=== PATIENT | female | born 1930 | race Caucasian/White ===

== ENCOUNTER 2017-03-07 20:50 | Inpatient (IN) ==
[2017-03-08] MEDS ORDERED: Naloxone 0.4 MG/ML INJ IVP PRN (03:06)
[2017-03-08] MEDS ORDERED: *HR* HYDROcodone/Acet 5/325 mg TABLET PO PRN (03:06)
[2017-03-08] MEDS ORDERED: *HR* Morphine 2 MG/ML SYRINGE IVP PRN (03:06)
--- NOTE | 2017-03-08 03:36 | Internal Med History&Physical ---
Date of Encounter: 03/08/17 Time of Encounter: 03:24 Assessment and Plan (1) Rectovaginal fistula Current visit: Yes Status: Acute She definitely high risk for severe sepsis with Recto vaginal fistula and need an immediate repair of fistula, need further work up too so will make her full admission.. Our Surgeon Dr. Mckeon already aware of this pt and recommend to admit under hospitalist service will talk to him in the morning cont symptomatic and supportive care NPO now IV fluids IV analgesics Will get an EKG for pre op work up Reviewed her CT of Reviewed labs WBC: 11.0, Hb 13.5, Na: 139, K + 3.3 UA- benign (2) Lower abdominal pain Current visit: Yes Status: Acute (3) DM2 (diabetes mellitus, type 2) Current visit: Yes Status: Acute Will check HbA1C Qualifiers: Qualified Code(s): E11.9 - Type 2 diabetes mellitus without complications (4) Melena Current visit: Yes Status: Acute Pt did mention about dark colored stools which might be due to Fe pills will check Hemoccult also will do close monitoring of Hb so far her Hb stable @ 13.5 Internal Medicine - H&P: HPI Chief complaint: Vaginal discharge Admitted From: Hospital to Hospital Transfer ([facility]) History of present illness: Ms. Michele is a 86 year old female with known PMH of ?? 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 ED last night c/o dark colored vaginal discharge and lower abdominal pain. She did noticed possible fecal material in her vaginal discharge. Pt was transferred to our hospital for further care. Pt denied any CP / SOB. She still has mild LLQ abdominal pain. As per pt she noticed some dark colored secretions through vagina, seems like fecal material, associated with LLQ abdominal soreness/ pain. Does have some nausea but denied any vomitings. 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 Past Med Surg Social Fam HX - Past Medical History Medical history: cancer, cardiomyopathy, kidney stones Psychiatric history: no psych history - Social History Smoking Status: Never smoker Smokeless Tobacco Status: No Alcohol use: none Drug use: none - Family History Mother History Unknown: Yes Father History Unknown: Yes All Systems PM: A 10-system review of systems was performed and is negative for pertinent findings except as documented above in the HPI. Review of systems: All the systems are reviewed everything is benign except the systems and symptoms I mentioned in the history of present illness - Constitutional General appearance: Present: A&O X 3, no acute distress, answers questions appropriately - Head Head exam: Present: atraumatic, normal inspection - Neck Neck exam general surgery: Present: supple - Respiratory Respiratory exam: Present: CTAB. Absent: accessory muscle use, rales, rhonchi, wheezes - Cardiovascular Cardiovascular exam: Present: RRR, +S1, +S2. Absent: diastolic murmur, gallop, rubs, systolic murmur - GI/Abdominal GI/Abdominal exam: Present: normal bowel sounds, soft, tenderness (mild tenderness in LLQ), no peritoneal signs. Absent: distended - Extremities Exam Extremities exam: Absent: calf tenderness, pedal edema, tenderness - Back Exam Back exam: Absent: CVA tenderness (L), CVA tenderness (R) - Neurological Exam Neurological exam: Present: alert, oriented X3 - Psychiatric Psychiatric exam: Present: normal affect, normal mood - Skin Skin exam: Absent: rash
[2017-03-08] MEDS: 0.9 % Sodium Chloride 1,000 ML IVC SCH ×2 (03:55→21:28)
[2017-03-08 05:22] LABS: Basophils # 0.1 K/mcL (0.0-0.2); Basophils % 0.8 %; Eosinophils # 0.1 K/mcL (0.0-0.6); Eosinophils % 1.6 %; Hematocrit 37.7 % (35.3-44.9); Hemoglobin 12.1 g/dL (11.5-15.4); Immature Granulocytes % 0.4 % (0-4); Lymphocytes # 2.1 K/mcL (0.6-4.6); Lymphocytes % 27.4 %; Mean Corpuscular HGB Conc 32.1 g/dL (31.6-35.5); Mean Corpuscular Hemoglobin 28.3 pg (28.0-33.3); Mean Corpuscular Volume 88.1 fL (83.0-100.0); Mean Platelet Volume 10.4 fL (9.4-12.4); Monocytes # 1.2 K/mcL (0.0-1.3); Monocytes % 14.9 %; Neutrophils # 4.2 K/mcL (1.6-8.9); Platelet Count 290 K/mcL (140-400); Red Blood Count 4.28 M/mcL (3.82-4.97); Red Cell Distribution Width 14.2 % (11.5-14.5); Segmented Neutrophils % 54.9 %
[2017-03-08] MEDS: *HR* Enoxaparin 40 MG/0.4 ML SYRINGE SQ SCH (05:36)
[2017-03-08 06:58] LABS: Alanine Aminotransferase 7 Units/L (0-55); Albumin 2.9 g/dL (3.5-5.0); Albumin/Globulin Ratio 0.8 (1.1-2.2); Alkaline Phosphatase 72 Units/L (38-126); Aspartate Amino Transferase 10 Units/L (5-34); BUN/Creatinine Ratio 23 (6-26); Bilirubin,Total 0.5 mg/dL (0.2-1.2); Blood Urea Nitrogen 17 mg/dL (7-20); Calcium 9.8 mg/dL (8.6-10.8); Carbon Dioxide 26 mEq/L (19-29); Chloride 106 mEq/L (98-109); Globulin 3.6 g/dL (2.4-3.5); Glucose 83 mg/dL (70-99); Osmolality,Calculated 293 (280-300); Potassium 3.1 mEq/L (3.5-4.5); Sodium 141 mEq/L (136-145); Total Protein 6.5 g/dL (6.0-8.3); eGFR For African Americans > 60 (> 60); eGFR For Non-African Americans > 60 (> 60)
[2017-03-08] MEDS ORDERED: Potassium Chloride 20 MEQ, Lidocaine 1% 2 ML in D5% in Water 250 ML IVPB ONE (09:29)
--- NOTE | 2017-03-08 10:23 | General Surgery Consult Note ---
Date of Encounter: 03/08/17 Time of Encounter: 10:40 Assessment and Plan (1) Rectovaginal fistula Current Visit: Yes Status: Acute Evidence of dark stool in vaginal discharge Patient is at high risk for sepsis Currently asymptomatic Plan Nothing by mouth for possible surgery tomorrow at midnight Barium enema with for evaluation and visualization of possible fistula. (2) Lower abdominal pain Current Visit: Yes Status: Acute No current complaints of abdominal pain at this time. Possibly related to fistula versus chronic constipation (3) Melena Current Visit: Yes Status: Acute Most likely etiology of iron supplementation No reported abdominal pain, symptomatic aside from discharge Continue to monitor this time History of Present Illness Consult date: 03/08/17 Reason for consult: other Requesting physician: Derrick Villanueva History of present illness: Mr. Michele is an 86-year-old female who presents to the emergency department with a complaint of heart stools and lower abdominal pain. She states that she takes iron supplementation as well as fiber supplementation 3 times per day and started to notice some dark, thick discharge coming from her vagina. She called her primary care physician told her to present to the emergency department. She denied any symptoms of dysuria, fevers, chills, diarrhea, constipation, blood in stool, nausea, vomiting. She has had multiple abdominal surgeries in the past including 3 involving her sigmoid colon for sigmoid prolapse as well as reported peritonitis. During time of interview, patient states that she is asymptomatic but she did notice some dark spots in her urine. She does admit to occasional urinary incontinence but states this is a chronic problem for her. She was admitted to medicine service for suspected recto- vaginal fistula with a high risk for sepsis. No signs of been stable. Labs unremarkable except for mild hypokalemia at 3.1. Past Med Surg Social Fam HX - Past Medical History Medical history: cancer, cardiomyopathy, kidney stones Psychiatric history: no psych history - Social History Smoking Status: Never smoker Smokeless Tobacco Status: No Alcohol use: none Drug use: none - Family History Mother History Unknown: Yes Father History Unknown: Yes Medications and Allergies hydroCHLOROthiazide [Hydrochlorothiazide] 12.5 mg PO DAILY 03/08/17 [History] 3 Allergy/AdvReac Type Severity Reaction Status Date / Time Sulfa (Sulfonamide Allergy Unknown Unknown Verified 03/08/17 07:02 Antibiotics) Review of Systems All systems PM: A 10-system review of systems was performed and is negative for pertinent findings except as documented above in the HPI. - Constitutional weight loss (3 Pounds), no chills, no fever(s), no headache(s) - Cardiovascular no chest pain, no dyspnea, no dyspnea on exertion, no edema - Respiratory no cough, no dyspnea, no hemoptysis, no wheezing - Gastrointestinal abdominal pain, no change in bowel habits, no constipation, no diarrhea, no loose stools, no melena, no nausea, no vomiting - Genitourinary Genitourinary: vaginal discharge (black) General Surgery Exam Initial Vital Signs Temp Pulse Resp BP Pulse Ox 98.0 F 75 16 145/56 99 03/08/17 03:25 03/08/17 03:25 03/08/17 03:25 03/08/17 03:25 03/08/17 03:25 - General physical appearance well developed, well nourished, no distress, no pain - Respiratory normal expansion, normal respiratory effort, clear to auscultation - Cardiovascular Cardiovascular exam: Present: RRR, no murmurs/rubs/gallops - Abdomen Abdomen general surgery: Present: bowel sounds present, soft, tender Abdominal Tenderness: Present: diffusely (mild) Exam Initial Vital Signs Temp Pulse Resp BP Pulse Ox 98.0 F 75 16 145/56 99 03/08/17 03:25 03/08/17 03:25 03/08/17 03:25 03/08/17 03:25 03/08/17 03:25 Results - Labs 03/08/17 05:00 03/08/17 05:00 Abnormal lab results Potassium 3.1 mEq/L (3.5-4.5) L 03/08/17 05:00 POC Glucose 92 (58-89) H 03/08/17 05:39 Albumin 2.9 g/dL (3.5-5.0) L 03/08/17 05:00 Globulin 3.6 g/dL (2.4-3.5) H 03/08/17 05:00 Albumin/Globulin Ratio 0.8 (1.1-2.2) L 03/08/17 05:00 Diabetes panel 03/08/17 03/08/17 Range/Units 05:00 05:00 Sodium 141 (136-145) mEq/L Potassium 3.1 L (3.5-4.5) mEq/L Chloride 106 (98-109) mEq/L Carbon Dioxide 26 (19-29) mEq/L BUN 17 (7-20) mg/dL Creatinine 0.73 (0.57-1.11) mg/dL Glucose 83 (70-99) mg/dL Hemoglobin A1c 5.0 ( - 5.6) % Calcium 9.8 (8.6-10.8) mg/dL AST 10 (5-34) Units/L ALT 7 (0-55) Units/L Alkaline Phosphatase 72 (38-126) Units/L Albumin 2.9 L (3.5-5.0) g/dL Calcium panel 03/08/17 Range/Units 05:00 Calcium 9.8 (8.6-10.8) mg/dL Albumin 2.9 L (3.5-5.0) g/dL Pituitary panel 03/08/17 Range/Units 05:00 Sodium 141 (136-145) mEq/L Potassium 3.1 L (3.5-4.5) mEq/L Chloride 106 (98-109) mEq/L Carbon Dioxide 26 (19-29) mEq/L BUN 17 (7-20) mg/dL Creatinine 0.73 (0.57-1.11) mg/dL Glucose 83 (70-99) mg/dL Calcium 9.8 (8.6-10.8) mg/dL Adrenal panel 03/08/17 Range/Units 05:00 Sodium 141 (136-145) mEq/L Potassium 3.1 L (3.5-4.5) mEq/L Chloride 106 (98-109) mEq/L Carbon Dioxide 26 (19-29) mEq/L BUN 17 (7-20) mg/dL Creatinine 0.73 (0.57-1.11) mg/dL Glucose 83 (70-99) mg/dL Calcium 9.8 (8.6-10.8) mg/dL Total Bilirubin 0.5 (0.2-1.2) mg/dL AST 10 (5-34) Units/L ALT 7 (0-55) Units/L Alkaline Phosphatase 72 (38-126) Units/L Albumin 2.9 L (3.5-5.0) g/dL All other labs normal. Consult Discharge Plan - Plan Referrals: Miky Garcia, [Primary Care Provider] -
--- NOTE | 2017-03-08 15:37 | Event Note ---
Date of Encounter: 03/08/17 Time of Encounter: 15:35 Patient is an 86y/o female admitted for rectovaginal fistula and lower abd pain. Pt seen and examined at bedside. denies any discomfort at this time. surgery on board and possible surgical intervention in am labs and vitals reviewed K supplemented NPO after midnight Hydralazine 10mg IV q6h prn SBP>160 continue IV fluids, IV analgesics
[2017-03-09 04:16] LABS: Basophils # 0.1 K/mcL (0.0-0.2); Basophils % 0.8 %; Eosinophils # 0.1 K/mcL (0.0-0.6); Eosinophils % 1.1 %; Hematocrit 38.3 % (35.3-44.9); Hemoglobin 12.3 g/dL (11.5-15.4); Immature Granulocytes % 0.5 % (0-4); Lymphocytes # 2.2 K/mcL (0.6-4.6); Lymphocytes % 23.9 %; Mean Corpuscular HGB Conc 32.1 g/dL (31.6-35.5); Mean Corpuscular Hemoglobin 28.3 pg (28.0-33.3); Mean Platelet Volume 10.2 fL (9.4-12.4); Monocytes # 1.2 K/mcL (0.0-1.3); Monocytes % 12.7 %; Neutrophils # 5.6 K/mcL (1.6-8.9); Platelet Count 305 K/mcL (140-400); Red Blood Count 4.35 M/mcL (3.82-4.97)
[2017-03-09 04:19] LABS: BUN/Creatinine Ratio 16 (6-26); Blood Urea Nitrogen 11 mg/dL (7-20); Calcium 9.4 mg/dL (8.6-10.8); Carbon Dioxide 21 mEq/L (19-29); Chloride 108 mEq/L (98-109); Glucose 89 mg/dL (70-99); Magnesium 1.8 mg/dL (1.6-2.6); Osmolality,Calculated 289 (280-300); Potassium 3.5 mEq/L (3.5-4.5); Sodium 140 mEq/L (136-145); eGFR For African Americans > 60 (> 60); eGFR For Non-African Americans > 60 (> 60)
[2017-03-09] MEDS: *HR* Enoxaparin 40 MG/0.4 ML SYRINGE SQ SCH (05:26)
[2017-03-09] MEDS ORDERED: 0.9 % Sodium Chloride 1,000 ML ONE (08:07)
[2017-03-09] MEDS: hydroCHLOROthiazide 25 MG TABLET PO SCH (09:55)
[2017-03-09] MEDS: Acetaminophen 325 MG TABLET PO PRN (09:58)
--- NOTE | 2017-03-09 13:05 | General Surgery Progress Note ---
Date of Encounter: 03/09/17 Time of Encounter: 12:00 - Assessment and Plan (1) Rectovaginal fistula Current Visit: Yes Status: Acute Barium enema today at 1300. Further recommendations pending Update: 1438-No rectovaginal fistula identified while distending the patient's rectum with Gastrografin contrast. Diverticulosis was identified within the descending and sigmoid colon. Pt is A&O x3, yet when discussing events leading up to admission and past history she is confused. There is no documented history of dementia available for me to review; however, patient is new to [facility]. This is mentioned in light of a negative Barium enema consideration could be given to incontinence. There have been no pelvic exams performed here or at [place] (according to records). Recommend further ORAL SURGERY TECHNICIAN considerations such as pelvic/bimanual exam. Reviewed with patient, her daughter, and Dr. Jacob. No surgical intervention indicated at this time. We will continue to follow along with you. Subjective Patient reports: no new complaints, voiding w/o difficulty, flatus, no bowel movement, afebrile Objective Vital Signs - Last 8 Hours Temp Pulse Resp BP Pulse Ox 03/09/17 10:55 97.9 F 76 17 143/88 99 03/09/17 08:16 97 03/09/17 07:24 97.5 F L 88 16 155/92 97 Intake and Output 03/08/17 03/09/17 03/09/17 23:59 07:59 15:59 Intake Total 1000 / 1000 Output Total 200 / 200 300 / 300 100 / 100 Balance 800 / 800 -300 / -300 -100 / -100 Intake: IV Fluids 1000 / 1000 0.9 % Sodium Chloride 1,000 ML 1000 / 1000 @ 75 mls/hr IVC .[id number] Rx #:[id number] Output: Urine 200 / 200 300 / 300 100 / 100 Other: Meal NPO # Voids 1 # Bowel Movements 1 Blood Glucose* 83 75 - General physical appearance no distress - Eyes normal ocular movement - ENT atraumatic, normocephalic - Neck Neck exam: trachea midline, no venous distension - Respiratory normal expansion, normal respiratory effort, clear to auscultation - Cardiovascular Cardiovascular exam: Present: RRR - Abdomen Abdomen: Present: bowel sounds present, soft, non tender - Integumentary no abnormal pigmentation - Neurologic normal sensation - Musculoskeletal normal gait, normal posture - Psychiatric oriented to time, oriented to person, oriented to place, speech is normal, memory intact - Labs 03/09/17 03:43 03/09/17 03:43 Diabetes panel 03/09/17 Range/Units 03:43 Sodium 140 (136-145) mEq/L Potassium 3.5 (3.5-4.5) mEq/L Chloride 108 (98-109) mEq/L Carbon Dioxide 21 (19-29) mEq/L BUN 11 (7-20) mg/dL Creatinine 0.70 (0.57-1.11) mg/dL Glucose 89 (70-99) mg/dL Calcium 9.4 (8.6-10.8) mg/dL Calcium panel 03/09/17 Range/Units 03:43 Calcium 9.4 (8.6-10.8) mg/dL Phosphorus 2.0 L (2.3-4.7) mg/dL Pituitary panel 03/09/17 Range/Units 03:43 Sodium 140 (136-145) mEq/L Potassium 3.5 (3.5-4.5) mEq/L Chloride 108 (98-109) mEq/L Carbon Dioxide 21 (19-29) mEq/L BUN 11 (7-20) mg/dL Creatinine 0.70 (0.57-1.11) mg/dL Glucose 89 (70-99) mg/dL Calcium 9.4 (8.6-10.8) mg/dL Adrenal panel 03/09/17 Range/Units 03:43 Sodium 140 (136-145) mEq/L Potassium 3.5 (3.5-4.5) mEq/L Chloride 108 (98-109) mEq/L Carbon Dioxide 21 (19-29) mEq/L BUN 11 (7-20) mg/dL Creatinine 0.70 (0.57-1.11) mg/dL Glucose 89 (70-99) mg/dL Calcium 9.4 (8.6-10.8) mg/dL Consult Discharge Plan - Plan Referrals: Miky Garcia DO [Primary Care Provider] -
--- NOTE | 2017-03-09 16:15 | Internal Med Progress Note ---
Date of Encounter: 03/09/17 Time of Encounter: 15:40 - Assessment and plan (1) Rectovaginal fistula Current Visit: Yes Status: Acute Assessment and plan: Initial imaging finding at an outside facility reported rectovaginal fistula Barium enema study reports no fistula no surgical intervention recommended at this time continues to complain of dark colored vaginal discharge and lower abd pain and possible fecal material in vaginal discharge trim mounter evaluation requested for further evaluation (2) Electrolyte abnormality Current Visit: Yes Status: Acute Assessment and plan: Hypophosphatemia Phos supplemented continue to monitor electrolytes and replace as needed (3) DVT prophylaxis Current Visit: Yes Status: Acute Assessment and plan: Lovenox sq (4) Melena Current Visit: Yes Status: Acute Assessment and plan: H&H stable dark stools likely secondary to iron supplementation will obtain stool occult - Subjective Interval history: Patient seen and examined with daughter present at bedside. Denies any discomfort. s/p Barium enema which reported no rectovaginal fistula while distending the patient's rectum with Gastrografin contrast No bowel movement reported. No further surgical intervention recommended at this time. trim mounter consultation requested for further evaluation Of note: pt reports of having memory loss in the last few years but does not have any official diagnosis of dementia. - Constitutional Vitals: Temp Pulse Resp BP Pulse Ox 97.6 F 78 17 150/99 100 03/09/17 15:24 03/09/17 15:24 03/09/17 15:24 03/09/17 15:24 03/09/17 15:24 General appearance: Present: A&O X 3, no acute distress, answers questions appropriately - Head Head exam: Present: atraumatic, normocephalic - Eye Eye exam: Present: conjuntiva pink, sclera anicteric - Respiratory Respiratory exam: Present: CTAB. Absent: respiratory distress, wheezes - Cardiovascular Cardiovascular exam: Present: RRR, +S1, +S2. Absent: diastolic murmur, gallop, rubs, systolic murmur - GI/Abdominal GI/Abdominal exam: Present: normal bowel sounds, soft, no peritoneal signs. Absent: distended, tenderness - Extremities Exam Extremities exam: Present: warm, radial pulses palpable and symmetrical. Absent : calf tenderness, pedal edema - Neurological Exam Neurological exam: Present: alert, oriented X3 Internal Medicine: Result - Labs CBC & Chem 7: 03/09/17 03:43 03/09/17 03:43 Labs: Short CBC 03/09/17 Range/Units 03:43 WBC 9.2 (4.3-11.1) K/mcL Hgb 12.3 (11.5-15.4) g/dL Hct 38.3 (35.3-44.9) % Plt Count 305 (140-400) K/mcL Neutrophils # 5.6 (1.6-8.9) K/mcL BMP 03/09/17 03:43 Sodium 140 Potassium 3.5 Chloride 108 Carbon Dioxide 21 BUN 11 Creatinine 0.70 Glucose 89 Calcium 9.4 - Impressions Impressions Barium Enema 03/09/17 08:00 IMPRESSION: No rectovaginal fistula identified while distending the patient's rectum with Gastrografin contrast. Diverticulosis was identified within the descending and sigmoid colon. D/ / Dannie Herrera MD / Dannie Herrera MD Interpreting Provider: Dannie Herrera MD Consult Discharge Plan - Plan Referrals: Miky Garcia DO [Primary Care Provider] -
--- NOTE | 2017-03-09 19:10 | OB/GYN Consult Note ---
Date of Encounter: 03/09/17 Time of Encounter: 18:50 Assessment and Plan (1) Vaginitis Current Visit: Yes Status: Acute Anaerobic and aerobic cultures obtained of the vaginal discharge would recommend getting radiology to review the [facility] from [facility] and possibly order another one to assess the hard mass at the vaginal cuff. If cultures test positive for Escherichia coli it would be highly suggestive of rectovaginal fistula. Negative can treat appropriately if anything grows out. Patient might need a course of Flagyl. Qualifiers: Chronicity: acute Qualified Code(s): N76.0 - Acute vaginitis History of Present Illness Consult date: 03/09/17 Requesting physician: Nelda Jacob Reason for consult: other (vaginal discharge) History of present illness: Patient is a 86-year-old white female who asked to see for evaluation for vaginal discharge. Patient states for the past few days she is not having any discharge with an odor and slight discoloration which she initially could not identify was confirmed but she finally felt it was coming out of the vagina. Patient states she called her primary care physician who recommended she go to the emergency room. Patient was seen at [facility] where CAT scan was performed and she was given a diagnosis of a possible rectovaginal fistula even though no pelvic exam was performed. It appears that called the general surgeon on staff recommend patient be transferred over and admitted. Patient did have a study today to see there was a fistula the study came back negative. Patient continues that this discharge we were asked to come and evaluate for this. Patient has a history of a hysterectomy in the past with multiple abdominal surgeries and a history of diverticulitis. She has been having a lot of pain in the suprapubic region. Patient was questioned whether or not she really was having this due to some potential memory loss that she is currently experiencing. I could not find the results of the CAT scan there on the disc and has not been downloaded yet. Patient states she had a hysterectomy back in the 70s for vaginal bleeding. Past Med Surg Social Fam HX - Past Medical History Source: patient, old records reviewed Medical history: cancer, cardiomyopathy, diabetes, kidney stones Psychiatric history: no psych history - Past Surgical History Surgical History: SACHA/BSO, other (Hemorrhoidectomy) - Social History Smoking Status: Never smoker Smokeless Tobacco Status: No Alcohol use: none Drug use: none - Family History Mother History Unknown: Yes Father History Unknown: Yes Medications and Allergies hydroCHLOROthiazide [Hydrochlorothiazide] 12.5 mg PO DAILY 03/08/17 [History] 3 Allergy/AdvReac Type Severity Reaction Status Date / Time Sulfa (Sulfonamide Allergy Unknown Unknown Verified 03/08/17 07:02 Antibiotics) Review of Systems All Systems: reviewed and no additional remarkable complaints except as stated Genitourinary Female: vaginal discharge, vaginal odor Exam - Vital Signs Vital signs: Initial Vital Signs Temp Pulse Resp BP Pulse Ox 98.0 F 75 16 145/56 99 03/08/17 03:25 03/08/17 03:25 03/08/17 03:25 03/08/17 03:25 03/08/17 03:25 - Constitutional Constitutional: no acute distress, thin - HEENT HEENT: Mucus Membranes Moist - Neck Neck exam: full ROM - Lungs Respiratory exam: CTAB - Cardiovascular Cardiovascular exam: RRR - Abdomen Abdomen: Present: bowel sounds normal - Vagina Vagina: Present: normal moisture (Speculum exam performed on the patient revealed atrophic mucosa but she was noted to have a yellow-green odorous discharge near The vaginal cuff with dark black flecks. She was cultured for aerobic and anaerobic cultures. Bimanual examination revealed a very hard vaginal cuff very tender to palpation I could not feel and see the corners of the cuff where the discharge is coming from.) Results Result Diagrams: 03/09/17 03:43 03/09/17 03:43 Abnormal lab results Phosphorus 2.0 mg/dL (2.3-4.7) L 03/09/17 03:43 Albumin 2.9 g/dL (3.5-5.0) L 03/08/17 05:00 Globulin 3.6 g/dL (2.4-3.5) H 03/08/17 05:00 Albumin/Globulin Ratio 0.8 (1.1-2.2) L 03/08/17 05:00 All other labs normal. Consult Discharge Plan - Plan Referrals: Miky Garcia DO [Primary Care Provider] -
--- NOTE | 2017-03-09 19:38 | Event Note ---
Date of Encounter: 03/09/17 Time of Encounter: 19:37 Dr Natarajan called. Vagina exam abnormal - felt hard. Rec either 1) review prior CT with radiology to determine etiology or 1) CT A/P with contrast. Will need further investigation prior to discharge.
[2017-03-10] MEDS: *HR* Enoxaparin 40 MG/0.4 ML SYRINGE SQ SCH (06:15)
[2017-03-10 07:22] LABS: BUN/Creatinine Ratio 14 (6-26); Blood Urea Nitrogen 10 mg/dL (7-20); Calcium 9.2 mg/dL (8.6-10.8); Carbon Dioxide 19 mEq/L (19-29); Chloride 107 mEq/L (98-109); Glucose 80 mg/dL (70-99); Magnesium 1.7 mg/dL (1.6-2.6); Osmolality,Calculated 286 (280-300); Phosphorous 2.2 mg/dL (2.3-4.7); Potassium 3.6 mEq/L (3.5-4.5); Sodium 139 mEq/L (136-145); eGFR For African Americans > 60 (> 60); eGFR For Non-African Americans > 60 (> 60)
[2017-03-10] MEDS ORDERED: 0.9 % Sodium Chloride 1,000 ML IVC SCH (08:15)
[2017-03-10 08:27] LABS: Basophils # 0.1 K/mcL (0.0-0.2); Basophils % 0.7 %; Eosinophils # 0.1 K/mcL (0.0-0.6); Eosinophils % 1.5 %; Hematocrit 38.5 % (35.3-44.9); Hemoglobin 12.4 g/dL (11.5-15.4); Immature Granulocytes % 0.6 % (0-4); Lymphocytes % 29.3 %; Mean Corpuscular HGB Conc 32.2 g/dL (31.6-35.5); Mean Corpuscular Hemoglobin 28.2 pg (28.0-33.3); Mean Corpuscular Volume 87.5 fL (83.0-100.0); Mean Platelet Volume 10.4 fL (9.4-12.4); Monocytes # 0.9 K/mcL (0.0-1.3); Monocytes % 12.8 %; Neutrophils # 3.8 K/mcL (1.6-8.9); Platelet Count 295 K/mcL (140-400); Red Cell Distribution Width 13.9 % (11.5-14.5); Segmented Neutrophils % 55.1 %
[2017-03-10] MEDS: hydroCHLOROthiazide 25 MG TABLET PO SCH (10:15)
--- NOTE | 2017-03-10 11:19 | General Surgery Progress Note ---
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 and reviewed these documents with the patient. Located CD from [place] and has sent this to radiology to be uploaded into PAX per Sonya (community health program representative). -Noted FINANCE PROFESSOR consult: pelvic exam revealing a hard mass in the vaginal cuff. Anaerobic anaerobic cultures were obtained of the vaginal discharge and FINANCE PROFESSOR recommends reviewing the CT from [facility]. Per FINANCE PROFESSOR cultures were positive for E. coli would be highly suggestive of the rectovaginal fistula versus incontinence (see description below). Notified ALEJANDRA Thompson with FINANCE PROFESSOR that CD and records had been located and available for review. Donna stated she would notify Dr. Perry of this when he exited surgery. -reports EGD and colonoscopy although she cannot recall dates or results. As previously noted in yesterday's exam, Pt was A&O x3, yet when discussing events leading up to admission and past history she is confused. Again of note there is no documented history of dementia and patient admits to recent memory loss making evaluation difficult at this time. Plan: Surgery will continue to follow along with you. Further recommendations pending review of outside CT Obtain old records from [facility]: --Barium enema 03/09/2017 negative: (No rectovaginal fistula identified while distending the patient's rectum with Gastrografin contrast. Diverticulosis was identified within the descending and sigmoid colon). Repeat CT AB/Pelvis with po and iv contrast 03/10/2017: IMPRESSION: 1. There is a 7 cm soft tissue tract extending from the proximal sigmoid colon inferiorly communicating with the left adnexa and the left vaginal cuff highly suspicious for a colovaginal fistula given clinical symptoms. There is an adjacent 1 cm pocket of gas which could represent a second sinus tract and/or abscess related to micro perforation. 2. Colonic diverticulosis predominate within the sigmoid colon with associated wall thickening. The inflammatory changes are more centered around the above sinus tract and less likely around colon. Underlying neoplasm cannot be excluded and consider further evaluation with colonoscopy. 3. Punctate nonobstructing left renal calculus. Subjective Narrative: Located documents from [facility] and reviewed these documents with the patient. Located CD from [place] [facility] and has sent this to radiology to be uploaded into PAX Per record review noted she has a notable history of 3 pregnancies, one miscarriage, uterine fibroids, salpingectomy followed by a hysterectomy, patient states her ovaries remain. Hemorrhoidectomy, gastritis, peritonitis, kidney stones, benign breast tumor in 1974, Bunyan acted me in 1977, basal cell carcinoma in 1979 a vaginal tag removed in 1980. In the GT scope in approximately 1980. G.I. bleeding in 1990. Heart With viral cardiomyopathy in 1990. Angioplasty in 1993, cataract surgery, abdominal peritonitis, another basal cell carcinoma in 2004, Paget's disease 2004, rectal lining prolapse surgery in 2007, foot surgery in 2010 and . Largely, the patient is unable to elaborate on any of these findings stating that she is having memory problems at this time. She denies abdominal pain at this time, she denies nausea, vomiting, or urinary signs or symptoms. She denies fever. She reports that she has had bowel movements that she has been hospitalized. She reports continued feeling of something in her vagina and or rectum. Objective Vital Signs - Last 8 Hours Temp Pulse Resp BP Pulse Ox 03/10/17 10:52 97.4 F L 88 17 156/81 99 03/10/17 07:15 97.7 F 67 17 167/85 96 03/10/17 03:50 98.2 F 79 16 132/77 96 Intake and Output 03/09/17 03/10/17 03/10/17 23:59 07:59 15:59 Intake Total 0 / 0 0 / 0 Output Total 450 / 450 200 / 200 100 / 100 Balance -450 / -450 -200 / -200 -100 / -100 Intake: Oral 0 / 0 0 / 0 Output: Urine 450 / 450 200 / 200 100 / 100 Other: Stool Size Small Small Stool Consistency liquid Stool Color Black # Bowel Movements 1 - General physical appearance no distress, no pain - Eyes normal ocular movement - ENT atraumatic, normocephalic - Neck Neck exam: trachea midline, no venous distension - Respiratory normal expansion, normal respiratory effort, clear to auscultation - Cardiovascular Cardiovascular exam: Present: RRR - Abdomen Abdomen: Present: bowel sounds present, soft, non tender Hernia: none - Integumentary no abnormal pigmentation - Neurologic normal coordination, normal sensation - Musculoskeletal normal posture - Psychiatric oriented to time, oriented to person, oriented to place, speech is normal, memory intact, other (Oriented but is unable to relate past medical history and appears confused.) - Labs 03/10/17 07:48 03/10/17 06:38 Diabetes panel 03/10/17 Range/Units 06:38 Sodium 139 (136-145) mEq/L Potassium 3.6 (3.5-4.5) mEq/L Chloride 107 (98-109) mEq/L Carbon Dioxide 19 (19-29) mEq/L BUN 10 (7-20) mg/dL Creatinine 0.71 (0.57-1.11) mg/dL Glucose 80 (70-99) mg/dL Calcium 9.2 (8.6-10.8) mg/dL Calcium panel 03/10/17 Range/Units 06:38 Calcium 9.2 (8.6-10.8) mg/dL Phosphorus 2.2 L (2.3-4.7) mg/dL Pituitary panel 03/10/17 Range/Units 06:38 Sodium 139 (136-145) mEq/L Potassium 3.6 (3.5-4.5) mEq/L Chloride 107 (98-109) mEq/L Carbon Dioxide 19 (19-29) mEq/L BUN 10 (7-20) mg/dL Creatinine 0.71 (0.57-1.11) mg/dL Glucose 80 (70-99) mg/dL Calcium 9.2 (8.6-10.8) mg/dL Adrenal panel 03/10/17 Range/Units 06:38 Sodium 139 (136-145) mEq/L Potassium 3.6 (3.5-4.5) mEq/L Chloride 107 (98-109) mEq/L Carbon Dioxide 19 (19-29) mEq/L BUN 10 (7-20) mg/dL Creatinine 0.71 (0.57-1.11) mg/dL Glucose 80 (70-99) mg/dL Calcium 9.2 (8.6-10.8) mg/dL Consult Discharge Plan - Plan Referrals: Miky Garcia DO [Primary Care Provider] -
--- NOTE | 2017-03-10 12:56 | OB/GYN Consult Note ---
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 Cultures are still pending. Barium enema 03/09/2017 negative: (No rectovaginal fistula identified while distending the patient's rectum with Gastrografin contrast. Diverticulosis was identified within the descending and sigmoid colon). Repeat CT AB/Pelvis with po and iv contrast 03/10/2017: IMPRESSION: 1. There is a 7 cm soft tissue tract extending from the proximal sigmoid colon inferiorly communicating with the left adnexa and the left vaginal cuff highly suspicious for a colovaginal fistula given clinical symptoms. There is an adjacent 1 cm pocket of gas which could represent a second sinus tract and/or abscess related to micro perforation. 2. Colonic diverticulosis predominate within the sigmoid colon with associated wall thickening. The inflammatory changes are more centered around the above sinus tract and less likely around colon. Underlying neoplasm cannot be excluded and consider further evaluation with colonoscopy. 3. Punctate nonobstructing left renal calculus. Discussed case and images with Dr. Perry - based on images this is no longer a case for management by [employer] AND SETTER. Will sign off. If further questions or concerns please call. Thank-you for the consult. History of Present Illness Reason for consult: other (vaginal discharge) History of present illness: Pt reports that today she is feeling much better. Still reporting feeling like something is in her vagina or pelvis. Denies abdominal pain, N/V, problems with bowel movements. She states this is the best she has felt in the past few days. Past Med Surg Social Fam HX - Past Medical History Medical history: cancer, cardiomyopathy, diabetes, kidney stones Psychiatric history: no psych history - Past Surgical History Surgical History: SACHA/BSO, other (Hemorrhoidectomy) - Social History Smoking Status: Never smoker Smokeless Tobacco Status: No Alcohol use: none Drug use: none - Family History Mother History Unknown: Yes Father History Unknown: Yes Medications and Allergies hydroCHLOROthiazide [Hydrochlorothiazide] 12.5 mg PO DAILY 03/08/17 [History] 3 Allergy/AdvReac Type Severity Reaction Status Date / Time Sulfa (Sulfonamide Allergy Unknown Unknown Verified 03/08/17 07:02 Antibiotics) Review of Systems All Systems: reviewed and no additional remarkable complaints except as stated Constitutional: as per HPI Exam - Vital Signs Vital signs: Initial Vital Signs Temp Pulse Resp BP Pulse Ox 98.0 F 75 16 145/56 99 03/08/17 03:25 03/08/17 03:25 03/08/17 03:25 03/08/17 03:25 03/08/17 03:25 - Constitutional Constitutional: well developed, well nourished, no acute distress, average body habitus - HEENT HEENT: Normocephaly, Mucus Membranes Moist - Lungs Respiratory exam: CTAB - Cardiovascular Cardiovascular exam: RRR, +S1, +S2 - Abdomen Abdomen: Present: bowel sounds normal, non tender - Extremities Extremities exam: normal capillary refill, normal inspection Results Result Diagrams: 03/10/17 07:48 03/10/17 06:38 Abnormal lab results Phosphorus 2.2 mg/dL (2.3-4.7) L 03/10/17 06:38 Albumin 2.9 g/dL (3.5-5.0) L 03/08/17 05:00 Globulin 3.6 g/dL (2.4-3.5) H 03/08/17 05:00 Albumin/Globulin Ratio 0.8 (1.1-2.2) L 03/08/17 05:00 All other labs normal. Consult Discharge Plan - Plan Referrals: Miky Garcia DO [Primary Care Provider] -
--- NOTE | 2017-03-10 14:49 | Internal Med Progress Note ---
Date of Encounter: 03/10/17 Time of Encounter: 13:20 - Assessment and plan (1) Rectovaginal fistula Current Visit: Yes Status: Acute Assessment and plan: DIRECTOR OF PRIMARY evaluation appreciated CT abd/pelvis reported 7cm soft tissue tract extending from the proximal sigmoid colon inferiorly communicating with the left adnexa and left vaginal cuff concerning for colovaginal fistula. There is an adjacent 1 cm pocket of gas which could represent a second sinus tract and/or abscess related to micro perforation. General surgery made aware of the CT findings, awaiting follow up. vaginal culture pending, if positive for E.coli will initiate abx therapy (2) Electrolyte abnormality Current Visit: Yes Status: Acute Assessment and plan: Hypophosphatemia Phos supplemented continue to monitor electrolytes and replace as needed (3) DVT prophylaxis Current Visit: Yes Status: Acute Assessment and plan: Lovenox sq (4) Melena Current Visit: Yes Status: Acute Assessment and plan: H&H stable dark stools likely secondary to iron supplementation will obtain stool occult - Subjective Interval history: Patient seen and examined with daughter present at bedside. Denies any discomfort. s/p Barium enema which reported no rectovaginal fistula while distending the patient's rectum with Gastrografin contrast brazer helper induction evaluation appreciated, STAT CT abd/pelvis reported 7cm soft tissue tract extending from the proximal sigmoid colon inferiorly communicating with the left adnexa and left vaginal cuff concerning for colovaginal fistula. There is an adjacent 1 cm pocket of gas which could represent a second sinus tract and/or abscess related to micro perforation. General surgery made aware of the CT findings, awaiting follow up. vaginal culture report not available at this time, if positive for E.coli will initiate abx therapy - Constitutional Vitals: Temp Pulse Resp BP Pulse Ox 97.4 F L 88 17 156/81 99 03/10/17 10:52 03/10/17 10:52 03/10/17 10:52 03/10/17 10:52 03/10/17 10:52 General appearance: Present: A&O X 3, no acute distress, answers questions appropriately - Head Head exam: Present: atraumatic, normocephalic - Eye Eye exam: Present: conjuntiva pink, sclera anicteric - Respiratory Respiratory exam: Present: CTAB. Absent: accessory muscle use, rales, rhonchi, wheezes - Cardiovascular Cardiovascular exam: Present: RRR, +S1, +S2. Absent: diastolic murmur, gallop, rubs, systolic murmur - GI/Abdominal GI/Abdominal exam: Present: normal bowel sounds, soft, no peritoneal signs. Absent: distended, tenderness - Extremities Exam Extremities exam: Present: warm, radial pulses palpable and symmetrical. Absent : calf tenderness, cyanotic, pedal edema - Neurological Exam Neurological exam: Present: alert, oriented X3 Internal Medicine: Result - Labs CBC & Chem 7: 03/10/17 07:48 03/10/17 06:38 Labs: Short CBC 03/10/17 Range/Units 07:48 WBC 6.9 (4.3-11.1) K/mcL Hgb 12.4 (11.5-15.4) g/dL Hct 38.5 (35.3-44.9) % Plt Count 295 (140-400) K/mcL Neutrophils # 3.8 (1.6-8.9) K/mcL BMP 03/10/17 06:38 Sodium 139 Potassium 3.6 Chloride 107 Carbon Dioxide 19 BUN 10 Creatinine 0.71 Glucose 80 Calcium 9.2 - Impressions Impressions Abdomen/Pelvis CT 03/10/17 10:30 IMPRESSION: 1. There is a 7 cm soft tissue tract extending from the proximal sigmoid colon inferiorly communicating with the left adnexa and the left vaginal cuff highly suspicious for a colovaginal fistula given clinical symptoms. There is an adjacent 1 cm pocket of gas which could represent a second sinus tract and/or abscess related to micro perforation. 2. Colonic diverticulosis predominate within the sigmoid colon with associated wall thickening. The inflammatory changes are more centered around the above sinus tract and less likely around colon. Underlying neoplasm cannot be excluded and consider further evaluation with colonoscopy. 3. Punctate nonobstructing left renal calculus. D/ / 03/10/2017 11:24:04 Genet Fernandez MD / ziggy Interpreting Provider: Genet Fernandez MD Consult Discharge Plan - Plan Referrals: Miky Garcia DO [Primary Care Provider] -
[2017-03-10] MEDS: MetroNIDAZOLE 500 MG/100 ML 500 MG/100 ML BAG IVPB SCH (15:47)
[2017-03-10] MEDS: Acetaminophen 325 MG TABLET PO PRN ×2 (15:48→20:23)
[2017-03-11] MEDS: MetroNIDAZOLE 500 MG/100 ML 500 MG/100 ML BAG IVPB SCH ×4 (00:44→23:24)
[2017-03-11 05:42] LABS: Basophils # 0.1 K/mcL (0.0-0.2); Basophils % 0.6 %; Eosinophils # 0.1 K/mcL (0.0-0.6); Eosinophils % 1.1 %; Hematocrit 36.6 % (35.3-44.9); Hemoglobin 11.9 g/dL (11.5-15.4); Immature Granulocytes % 0.7 % (0-4); Lymphocytes # 2.1 K/mcL (0.6-4.6); Lymphocytes % 23.6 %; Mean Corpuscular HGB Conc 32.5 g/dL (31.6-35.5); Mean Corpuscular Hemoglobin 28.1 pg (28.0-33.3); Mean Corpuscular Volume 86.3 fL (83.0-100.0); Monocytes # 1.2 K/mcL (0.0-1.3); Monocytes % 13.4 %; Neutrophils # 5.4 K/mcL (1.6-8.9); Platelet Count 280 K/mcL (140-400); Red Blood Count 4.24 M/mcL (3.82-4.97); Segmented Neutrophils % 60.6 %
[2017-03-11] MEDS: *HR* Enoxaparin 40 MG/0.4 ML SYRINGE SQ SCH (05:58)
[2017-03-11 05:59] LABS: % Iron Saturation 30 % (15-50); BUN/Creatinine Ratio 12 (6-26); Blood Urea Nitrogen 9 mg/dL (8-23); Carbon Dioxide 23 mEq/L (23-29); Chloride 109 mEq/L (98-107); Ferritin 292 ng/ml (10-120); Glucose 104 mg/dL (70-105); Iron 63 mcg/dL (50-170); Magnesium 1.8 mg/dL (1.6-2.6); Osmolality,Calculated 289 (280-300); Phosphorous 2.4 mg/dL (2.7-4.5); Potassium 3.2 mEq/L (3.5-5.1); Sodium 140 mEq/L (136-145); Transferrin 150 mg/dL (203-362); eGFR For African Americans > 60 (> 60); eGFR For Non-African Americans > 60 (> 60)
[2017-03-11] MEDS: hydroCHLOROthiazide 25 MG TABLET PO SCH (07:21)
[2017-03-11] MEDS: Acetaminophen 325 MG TABLET PO PRN (07:21)
[2017-03-11] MEDS ORDERED: Potassium Phosphate 44 MEQ in 0.9 % Sodium Chloride 250 ML IVPB ONE (08:24)
--- NOTE | 2017-03-11 10:47 | General Surgery Progress Note ---
Date of Encounter: 03/11/17 Time of Encounter: 10:47 - Assessment and Plan (1) Rectovaginal fistula Current Visit: Yes Status: Acute No abdominal pain. Noted fecal material in the vagina upon digital vagina exam. Plan: Reviewed with patient and daughter recommendations of sigmoid resection and diverting colostomy. We will plan for surgical intervention in the next 24-48 hours. Bowel prep now (dulcolax 10 mg BID x2, miralax bowel prep), clear liquid diet, NPO after 0000 EES and Neomycin ATBX bowel prophylaxis Cardiac risk stratification Repeat am labs [employer] -Noted RENDERING EQUIPMENT TENDER consult: pelvic exam revealing a hard mass in the vaginal cuff. RENDERING EQUIPMENT TENDER has signed off at this time. -reports EGD and colonoscopy although she cannot recall dates or results. Imaging: --Barium enema 03/09/2017 negative: (No rectovaginal fistula identified while distending the patient's rectum with Gastrografin contrast. Diverticulosis was identified within the descending and sigmoid colon). Repeat CT AB/Pelvis with po and iv contrast 03/10/2017: IMPRESSION: 1. There is a 7 cm soft tissue tract extending from the proximal sigmoid colon inferiorly communicating with the left adnexa and the left vaginal cuff highly suspicious for a colovaginal fistula given clinical symptoms. There is an adjacent 1 cm pocket of gas which could represent a second sinus tract and/or abscess related to micro perforation. 2. Colonic diverticulosis predominate within the sigmoid colon with associated wall thickening. The inflammatory changes are more centered around the above sinus tract and less likely around colon. Underlying neoplasm cannot be excluded and consider further evaluation with colonoscopy. 3. Punctate nonobstructing left renal calculus. (2) Cardiomyopathy Current Visit: Yes Status: Acute Cardiomyopathy per patient report. No records available for review at this time. We have requested them from [facility]. She denies symptoms of angina. She is able to achieve greater than 4METS of activity with symptoms. She takes only HCTZ as home medications Qualifiers: Cardiomyopathy type: unspecified Qualified Code(s): I42.9 - Cardiomyopathy , unspecified Subjective Patient reports: no new complaints, tolerating liquids well, voiding w/o difficulty, flatus, bowel movement, afebrile Objective Vital Signs - Last 8 Hours Temp Pulse Resp BP Pulse Ox 03/11/17 10:23 97.8 F 76 16 134/66 96 03/11/17 07:22 97.8 F 81 16 141/82 96 03/11/17 03:10 98.4 F 74 16 151/71 95 Intake and Output 03/10/17 03/11/17 03/11/17 23:59 07:59 15:59 Intake Total 300 / 300 200 / 200 440 / 440 Output Total 1700 / 1700 650 / 650 0 / 0 Balance -1400 / -1400 -450 / -450 440 / 440 Intake: IV Fluids 300 / 300 100 / 100 100 / 100 Cipro Premix 400 MG/200 ML 400 200 / 200 mg In 200 ml @ 200 mls/hr IVPB Q12HR BTEI Rx#:[id number] Flagyl Premix 500 MG/100 ML 500 100 / 100 100 / 100 100 / 100 mg In 100 ml @ 100 mls/hr IVPB Q8HR BETI Rx#:[id number] Oral 0 / 0 100 / 100 340 / 340 Output: Urine 1000 / 1000 300 / 300 0 / 0 Urine/Stool Mix 700 / 700 350 / 350 Other: Meal Breakfast Percent of Meal Consumed 25% - General physical appearance no distress - Eyes normal ocular movement - ENT atraumatic, normocephalic - Neck Neck exam: trachea midline, no venous distension - Respiratory normal expansion, normal respiratory effort, clear to auscultation - Cardiovascular Cardiovascular exam: Present: RRR - Abdomen Abdomen: Present: bowel sounds present, soft, non tender Hernia: none - Genitourinary other (NOTED FECES WITH DIGITAL VAGINAL EXAM) - Rectum normal sphincter tone - Integumentary no growths - Neurologic normal coordination, normal sensation - Musculoskeletal normal gait, normal posture - Psychiatric oriented to time, oriented to person, oriented to place, speech is normal, memory intact - Labs 03/11/17 05:31 03/11/17 05:31 Diabetes panel 03/11/17 Range/Units 05:31 Sodium 140 (136-145) mEq/L Potassium 3.2 L (3.5-5.1) mEq/L Chloride 109 H (98-107) mEq/L Carbon Dioxide 23 (23-29) mEq/L BUN 9 (8-23) mg/dL Creatinine 0.74 (0.60-1.20) mg/dL Glucose 104 (70-105) mg/dL Calcium 9.0 (8.6-10.3) mg/dL Calcium panel 03/11/17 Range/Units 05:31 Calcium 9.0 (8.6-10.3) mg/dL Phosphorus 2.4 L (2.7-4.5) mg/dL Pituitary panel 03/11/17 Range/Units 05:31 Sodium 140 (136-145) mEq/L Potassium 3.2 L (3.5-5.1) mEq/L Chloride 109 H (98-107) mEq/L Carbon Dioxide 23 (23-29) mEq/L BUN 9 (8-23) mg/dL Creatinine 0.74 (0.60-1.20) mg/dL Glucose 104 (70-105) mg/dL Calcium 9.0 (8.6-10.3) mg/dL Adrenal panel 03/11/17 Range/Units 05:31 Sodium 140 (136-145) mEq/L Potassium 3.2 L (3.5-5.1) mEq/L Chloride 109 H (98-107) mEq/L Carbon Dioxide 23 (23-29) mEq/L BUN 9 (8-23) mg/dL Creatinine 0.74 (0.60-1.20) mg/dL Glucose 104 (70-105) mg/dL Calcium 9.0 (8.6-10.3) mg/dL Consult Discharge Plan - Plan Referrals: Miky Garcia DO [Primary Care Provider] -
[2017-03-11] MEDS ORDERED: Polyethylene Glycol 3350 255 GM POWDER PO ONE (11:11)
--- NOTE | 2017-03-11 13:11 | Cardiology Consult Note ---
<Carine Benito - Last Filed: 03/11/17 13:24> Date of Encounter: 03/11/17 Time of Encounter: 12:30 Assessment and Plan (1) Preoperative cardiovascular examination Current Visit: Yes Status: Acute Preoperative risk stratification for urgent sigmoid colon resection under general anesthesia; scheduled for 03/12/17. Cardiac history includes: hx of viral cardiomyopathy in 1990, otherwise no history of cardiovascular disease. No significant family history of heart disease. Clinically, appears euvolemic upon exam. Denies chest pain or discomfort. Obtain ECG. Patient describes activity of achieving 4 METS. Given history of cardiomyopaty, will obtain echocardiogram. If no significant findings, patient is an acceptable risk candidate to proceed with intermediate risk surgery. Will further discuss with Dr. Stiles. Discussion w patient/family: The assessment and plan as outlined above was discussed with the patient and/or family members who expressed understanding and agreement. All questions were answered. Thank you for involving us in the care of your patient. Please call with any questions. The patient will be discussed and reviewed with Dr. Stiles; changes to be made accordingly. History of Present Illness Consult date: 03/11/17 Requesting physician: Chelo Renteria Consult reason: Preoperative risk stratification Chief complaint: Colon mass History of present illness: Ms. Michele is a 86 year old female who presented to the ED from [facility] due to reported abnormal vaginal discharge. 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 She is scheduled for sigmoid colon resection tomorrow with Dr. Mckeon. Past medical history significnat for kidney stones, breast cancer, and prior abdominal surgery. She denies any personal or family history of cardiovascular disease. Reported history of viral cardiomyopathy in 1990, at that time she underwent LHC which was found to be "normal." Cardiology consulted today for pre-operative risk stratification. Past Med Surg Social Fam HX - Past Medical History Medical history: cancer, cardiomyopathy (viral--1990), kidney stones Psychiatric history: no psych history - Past Surgical History Surgical History: SACHA/BSO, other (Hemorrhoidectomy) - Social History Smoking Status: Never smoker Smokeless Tobacco Status: No Alcohol use: none Drug use: none - Family History Mother History Unknown: Yes Father History Unknown: Yes Medications and Allergies hydroCHLOROthiazide [Hydrochlorothiazide] 12.5 mg PO DAILY 03/08/17 [History] 3 Allergy/AdvReac Type Severity Reaction Status Date / Time Sulfa (Sulfonamide Allergy Unknown Unknown Verified 03/08/17 07:02 Antibiotics) All Systems Review: A 10-system review of systems was performed and is negative for pertinent findings except as documented above in the HPI. - Cardiovascular Cardiovascular: as per HPI Physical Examination Vital Signs, Last 4 Hours Temp Pulse Resp BP Pulse Ox 03/11/17 10:23 97.8 F 76 16 134/66 96 General: Conversant HEENT: Atraumatic, Normocephaly Cardiac: Reg Rate and Rhythm, Normal S1 and S2 Lungs: Normal Breath Sounds Neuro: Alert and responsive Abdomen: Soft Skin: No rashes noted on visualized skin Musculoskeletal: No Chest Wall Tenderness Extremities: No Edema, Normal Pulses Results 03/11/17 05:31 03/11/17 05:31 Lab Results 03/11/17 03/11/17 05:31 05:31 WBC 8.9 Hgb 11.9 Hct 36.6 Plt Count 280 Sodium 140 Potassium 3.2 L Chloride 109 H Carbon Dioxide 23 BUN 9 Creatinine 0.74 Glucose 104 Calcium 9.0 Magnesium 1.8 Active Medications Acetaminophen (Tylenol) 650 mg PO Q6HR PRN PRN Reason: Mild Pain (1-3) Stop: 09/07/17 03:07 Last Admin: 03/11/17 07:21 Dose: 650 mg Hydrocodone Bitart/Acetaminophen ([place] 5-325 Mg) 1 tab PO Q4HR PRN PRN Reason: Moderate Pain (4-6) Stop: 09/07/17 03:07 Bisacodyl (Dulcolax) 10 mg PO BID [facility] Stop: 03/11/17 21:01 Enoxaparin Sodium (Lovenox) 40 mg SQ 0600 [facility] PRN Reason: Protocol Stop: 09/07/17 06:01 Last Admin: 03/11/17 05:58 Dose: 40 mg Erythromycin (Al-Tab) 500 mg PO 1400,1500,2200 [facility] Stop: 03/11/17 22:01 Hydralazine HCl (Hydralazine) 10 mg IVP Q6HR PRN PRN Reason: SBP>160 Stop: 09/07/17 15:36 Last Admin: 03/09/17 05:13 Dose: 10 mg Hydrochlorothiazide (Hydrochlorothiazide) 12.5 mg PO DAILY [facility] Stop: 09/08/17 09:01 Last Admin: 03/11/17 07:21 Dose: 12.5 mg Metronidazole (Flagyl Premix 500 Mg/100 Ml) 500 mg in 100 mls @ 100 mls/hr IVPB Q8HR BETI Stop: 09/09/17 16:01 Last Infusion: 03/11/17 09:50 Dose: Infused Ciprofloxacin Lactate (Cipro Premix 400 Mg/200 Ml) 400 mg in 200 mls @ 200 mls/ hr IVPB Q12HR BETI Stop: 09/09/17 18:01 Last Admin: 03/11/17 05:58 Dose: 200 mls/hr Potassium Phosphate 44 meq/ (Sodium Chloride) 260 mls @ 40 mls/hr IVPB ONCE ONE Stop: 03/11/17 14:53 Last Admin: 03/11/17 09:49 Dose: 40 mls/hr Morphine Sulfate (Morphine Sulfate) 2 mg IVP Q4HR PRN PRN Reason: Severe Pain (7-10) Stop: 09/07/17 03:07 Naloxone HCl (Narcan) 0.4 mg IVP Q2MIN PRN PRN Reason: Opioid Reversal Stop: 09/07/17 03:07 Neomycin Sulfate (Neomycin) 500 mg PO 1400,1500,2200 [facility] Stop: 03/11/17 22:01 Consult Discharge Plan - Plan Referrals: Miky Garcia DO [Primary Care Provider] - <Felicia Stiles - Last Filed: 03/11/17 16:35> Date of Encounter: 03/11/17 - Attending Attestation I examined this patient and my medical decision-making was reviewed with the RATINGS ANALYST. I agree with the documented findings, disposition and treatment plan. Ms. Michele is an 86-year-old female who we have been asked to provide pre- operative risk stratification prior to urgent sigmoid colon resection performed under general anesthesia for a rectovaginal fistula. She reports having a history of viral cardiomyopathy in 1990, and underwent a heart catheterization reportedly normal. She also reports having history of heart palpitations for which she uses cough is a maneuver, presumably SVT. Otherwise, has no other cardiac history that she is able to report. The patient is quite cognitively aware and very knowledgeable about her medical history. She does have chronic back issues and uses a cane to walk. It is difficult to determine if she can achieve 4 METS. She is able to perform self care and walk with a cane. It does not appear that she does much else at home. Her family members report however, that she recently was out shopping with them and did ok. With her current activity, she is not describing any ischemic type cardiac symptoms. Stress testing does not appear to be warranted at this time and if done, would likely delay her urgent surgery. We do recommend performing an echo for risk stratification and doing an ECG. She understands that there is potential for cardiac risk during surgery done with general anesthesia. Because of the urgent nature of the procedure, we do not feel further testing would be warranted. Recommend avoidance of periods of hypo/hypertension and excess fluid loss during the procedure. Further recommendations to follow echo and ECG. Assessment and Plan Discussion w patient/family: The assessment and plan as outlined above was discussed with the patient and/or family members who expressed understanding and agreement. All questions were answered. Thank you for involving us in the care of your patient. Please call with any questions. History of Present Illness History of present illness: Ms. Michele is a 86 year old female All Systems Review: A 10-system review of systems was performed and is negative for pertinent findings except as documented above in the HPI. Physical Examination Vital Signs, Last 4 Hours Temp Pulse Resp BP Pulse Ox 03/11/17 14:59 97.9 F 93 16 185/82 99 Results 03/11/17 05:31 03/11/17 05:31 Lab Results 03/11/17 12 05:31 05:31 WBC 8.9 Hgb 11.9 Hct 36.6 Plt Count 280 Sodium 140 Potassium 3.2 L Chloride 109 H Carbon Dioxide 23 BUN 9 Creatinine 0.74 Glucose 104 Calcium 9.0 Magnesium 1.8
--- NOTE | 2017-03-11 15:42 | Internal Med Progress Note ---
Date of Encounter: 03/11/17 Time of Encounter: 13:25 - Assessment and plan (1) Rectovaginal fistula Current Visit: Yes Status: Acute Assessment and plan: TRAVEL PHYSICAL THERAPIST evaluation appreciated CT abd/pelvis reported 7cm soft tissue tract extending from the proximal sigmoid colon inferiorly communicating with the left adnexa and left vaginal cuff concerning for colovaginal fistula. There is an adjacent 1 cm pocket of gas which could represent a second sinus tract and/or abscess related to micro perforation. General surgery consultation appreciated, tentative surgery in am pending cardiology clearance vaginal culture pending, if positive for E.coli will initiate abx therapy (2) Electrolyte abnormality Current Visit: Yes Status: Acute Assessment and plan: Hypokalemia and hypophosphatemia K and Phos supplemented continue to monitor electrolytes and replace as needed (3) DVT prophylaxis Current Visit: Yes Status: Acute Assessment and plan: Lovenox sq (4) Melena Current Visit: Yes Status: Resolved Assessment and plan: iron studies noted pt asked to discontinue iron supplements given current ferritin level - Subjective Interval history: Patient seen and examined at bedside. Denies any discomfort. s/p Barium enema which reported no rectovaginal fistula while distending the patient's rectum with Gastrografin contrast gas station clerk evaluation appreciated, STAT CT abd/pelvis reported 7cm soft tissue tract extending from the proximal sigmoid colon inferiorly communicating with the left adnexa and left vaginal cuff concerning for colovaginal fistula. There is an adjacent 1 cm pocket of gas which could represent a second sinus tract and/or abscess related to micro perforation. General surgery on board and tentative surgery in the next 24-48 hours Cardiology consult requested by surgery for pre-op clearance vaginal culture report not available at this time, if positive for E.coli will initiate abx therapy - Constitutional Vitals: Temp Pulse Resp BP Pulse Ox 97.9 F 93 16 185/82 99 03/11/17 14:59 03/11/17 14:59 03/11/17 14:59 03/11/17 14:59 03/11/17 14:59 General appearance: Present: A&O X 3, no acute distress, answers questions appropriately - Head Head exam: Present: atraumatic, normocephalic - Eye Eye exam: Present: conjuntiva pink, sclera anicteric - Respiratory Respiratory exam: Present: CTAB. Absent: respiratory distress, wheezes - Cardiovascular Cardiovascular exam: Present: RRR, +S1, +S2. Absent: diastolic murmur, gallop, rubs, systolic murmur - GI/Abdominal GI/Abdominal exam: Present: normal bowel sounds, soft, no peritoneal signs. Absent: distended, tenderness - Extremities Exam Extremities exam: Present: warm, radial pulses palpable and symmetrical. Absent : calf tenderness, cyanotic, pedal edema - Neurological Exam Neurological exam: Present: alert, oriented X3 Internal Medicine: Result - Labs CBC & Chem 7: 03/11/17 05:31 03/11/17 05:31 Labs: Short CBC 03/11/17 Range/Units 05:31 WBC 8.9 (4.3-11.1) K/mcL Hgb 11.9 (11.5-15.4) g/dL Hct 36.6 (35.3-44.9) % Plt Count 280 (140-400) K/mcL Neutrophils # 5.4 (1.6-8.9) K/mcL BMP 03/11/17 05:31 Sodium 140 Potassium 3.2 L Chloride 109 H Carbon Dioxide 23 BUN 9 Creatinine 0.74 Glucose 104 Calcium 9.0 Consult Discharge Plan - Plan Referrals: Miky Garcia DO [Primary Care Provider] -
[2017-03-11] MEDS ORDERED: Ondansetron 4 MG/2 ML VIAL ONE (15:52)
[2017-03-11] MEDS: Ondansetron 4 MG/2 ML VIAL IVP PRN ×2 (16:05→23:23)
--- NOTE | 2017-03-11 20:25 | Anesthesia Evaluation PreOp ---
Date of Encounter: 03/11/17 Time of Encounter: 20:10 - Past History Planned Operation: Lap Sigmoid Resection Cardiac History: Other (Hx Viral Cardiomyopathy 1990, Cardiology consulted, ECHO may be pending) Pulmonary History: Denies Any Significant HX MONOGRAM MACHINE OPERATOR History: Denies Any Significant HX Other Medical History: Diabetes Type II Anesthesia History: No Prior Anesthetic Complications : No Alcohol Use: none Drug use: none Medications and Allergies hydroCHLOROthiazide [Hydrochlorothiazide] 12.5 mg PO DAILY 03/08/17 [History] 3 Allergy/AdvReac Type Severity Reaction Status Date / Time Sulfa (Sulfonamide Allergy Unknown Unknown Verified 03/08/17 07:02 Antibiotics) - Meds/Allergy Pre-op Review Medications Reviewed: Yes Allergies Reviewed: Yes Beta Blockers on Current Med List: No Anesthesia Results - Labs 03/11/17 05:31 03/11/17 05:31 - Imaging EKG: pending Additional studies: Seen by Cardiology, ECHO may be pending but patient active Anesthesia Exam O2 Sat O2 Sat by Pulse Oximetry 97 O2 Sat by Pulse Oximetry 99 O2 Sat by Pulse Oximetry 96 O2 Sat by Pulse Oximetry 96 O2 Sat by Pulse Oximetry 95 O2 Sat by Pulse Oximetry 97 O2 Sat by Pulse Oximetry 98 Vital Signs Temp Pulse Resp BP Pulse Ox 98.0 F 75 16 145/56 99 03/08/17 03:25 03/08/17 03:25 03/08/17 03:25 03/08/17 03:25 03/08/17 03:25 Height: 5'6 Weight: 128 lbs NPO (# of Hours): MN Pain Scale: 0 - HEENT Pupil (Motor): Pupils equal, EOMI Mallampati: III Teeth: Normal Oral Opening: Less than or equal to 3 - MONOGRAM MACHINE OPERATOR LOC: Oriented MONOGRAM MACHINE OPERATOR Motor: Normal RUE, Normal LUE, Normal RLE, Normal LLE, Normal Face MONOGRAM MACHINE OPERATOR Sensory: Normal: RUE, LUE, RLE, LLE, Face - Cardiac Rhythm: Regular Murmur: None JVD: No Carotid Bruit: No - Pulmonary Breath Sounds: bilateral Clear Respiratory Effort: Symmetrical Anesthesia Assess/Plan ASA Score: 2 Modified Brigette Scale for Level of Consciousness: Cooperative, oriented, and tranquil Anesthetic Plan: General Monitoring Plan: Standard Monitors Recovery Plan: PACU (Discussed GA, questions aswered, agrees to proceed)
[2017-03-12] MEDS ORDERED: *HR* Promethazine 25 MG/ML VIAL IVP PRN (02:39)
[2017-03-12 05:48] LABS: INR 1.2; Prothrombin Time 13.1 Seconds (9.4-12.1)
[2017-03-12 05:49] LABS: Basophils # 0.1 K/mcL (0.0-0.2); Basophils % 0.4 %; Eosinophils % 0.3 %; Hematocrit 36.5 % (35.3-44.9); Immature Granulocytes % 1.1 % (0-4); Lymphocytes # 1.1 K/mcL (0.6-4.6); Lymphocytes % 9.9 %; Mean Corpuscular HGB Conc 32.9 g/dL (31.6-35.5); Mean Corpuscular Hemoglobin 28.6 pg (28.0-33.3); Mean Corpuscular Volume 87.1 fL (83.0-100.0); Mean Platelet Volume 10.7 fL (9.4-12.4); Monocytes % 8.7 %; Platelet Count 293 K/mcL (140-400); Red Blood Count 4.19 M/mcL (3.82-4.97); Red Cell Distribution Width 14.2 % (11.5-14.5); Segmented Neutrophils % 79.6 %
[2017-03-12] MEDS: *HR* Enoxaparin 40 MG/0.4 ML SYRINGE SQ SCH (06:47)
[2017-03-12] MEDS: MetroNIDAZOLE 500 MG/100 ML 500 MG/100 ML BAG IVPB SCH ×2 (07:50→17:38)
[2017-03-12] MEDS: hydroCHLOROthiazide 25 MG TABLET PO SCH (07:50)
[2017-03-12] MEDS ORDERED: 0.9 % Sodium Chloride 1,000 ML IVC SCH (08:45)
--- NOTE | 2017-03-12 09:21 | Internal Med Progress Note ---
Date of Encounter: 03/12/17 Time of Encounter: 09:19 - Assessment and plan (1) Rectovaginal fistula Current Visit: Yes Status: Acute Assessment and plan: MANAGING EDITOR evaluation appreciated CT abd/pelvis reported 7cm soft tissue tract extending from the proximal sigmoid colon inferiorly communicating with the left adnexa and left vaginal cuff concerning for colovaginal fistula. There is an adjacent 1 cm pocket of gas which could represent a second sinus tract and/or abscess related to micro perforation. General surgery consultation appreciated, tentative surgery (sigmoid resection and diverting colostomy) later today (03/12/17) vaginal culture positive for gram negative kenyatta: on Ciprofloxacin and Flagyl ( Day 2 of abx) (2) DVT prophylaxis Current Visit: Yes Status: Acute Assessment and plan: holding today's dose of lovenox due to surgery restart chemical dvt ppx after surgery (3) Melena Current Visit: Yes Status: Resolved Assessment and plan: iron studies noted pt asked to discontinue iron supplements given current ferritin level (4) Electrolyte abnormality Current Visit: Yes Status: Acute - Subjective Interval history: Patient seen and examined at bedside. Reports of persistent nausea overnight and states she had a restless night. Resting in bed and reports of slightly feeling better. No nausea or vomiting reported at this time Vaginal culture report positive for gram negative kenyatta, started on Ciprofloxacin and Metronidazole CT abd/pelvis reported 7cm soft tissue tract extending from the proximal sigmoid colon inferiorly communicating with the left adnexa and left vaginal cuff concerning for colovaginal fistula. There is an adjacent 1 cm pocket of gas which could represent a second sinus tract and/or abscess related to micro perforation. General surgery on board and tentative surgery (sigmoid resection and diverting colostomy) later today (03/12/17) - Constitutional Vitals: Temp Pulse Resp BP Pulse Ox 98.4 F 90 18 110/70 99 03/12/17 07:29 03/12/17 07:29 03/12/17 07:29 03/12/17 07:29 03/12/17 07:29 General appearance: Present: A&O X 3 (fatigued), no acute distress, answers questions appropriately - Head Head exam: Present: atraumatic, normocephalic - Eye Eye exam: Present: conjuntiva pink, sclera anicteric - Respiratory Respiratory exam: Present: CTAB. Absent: accessory muscle use, rales, rhonchi, wheezes - Cardiovascular Cardiovascular exam: Present: RRR, +S1, +S2. Absent: diastolic murmur, gallop, rubs, systolic murmur - GI/Abdominal GI/Abdominal exam: Present: normal bowel sounds, soft, no peritoneal signs. Absent: distended, tenderness - Extremities Exam Extremities exam: Present: warm, radial pulses palpable and symmetrical. Absent : calf tenderness, cyanotic, pedal edema - Neurological Exam Neurological exam: Present: alert, oriented X3 Internal Medicine: Result - Labs CBC & Chem 7: 03/12/17 04:24 03/11/17 05:31 Labs: Short CBC 03/12/17 Range/Units 04:24 WBC 11.2 H (4.3-11.1) K/mcL Hgb 12.0 (11.5-15.4) g/dL Hct 36.5 (35.3-44.9) % Plt Count 293 (140-400) K/mcL Neutrophils # 9.0 H (1.6-8.9) K/mcL - ABG Interpretation ABG results: PT/INR, D-dimer PT 13.1 Seconds (9.4-12.1) H 03/12/17 04:24 - Impressions Impressions Abdomen/Pelvis CT 03/10/17 10:30 IMPRESSION: 1. There is a 7 cm soft tissue tract extending from the proximal sigmoid colon inferiorly communicating with the left adnexa and the left vaginal cuff highly suspicious for a colovaginal fistula given clinical symptoms. There is an adjacent 1 cm pocket of gas which could represent a second sinus tract and/or abscess related to micro perforation. 2. Colonic diverticulosis predominately within the sigmoid colon with associated wall thickening. The inflammatory changes are more centered around the above sinus tract and less around colon. Underlying neoplasm cannot be excluded and consider further evaluation with colonoscopy. Differential also includes resolving or chronic diverticulitis. 3. Punctate nonobstructing left renal calculus. D/ / 03/10/2017 11:24:04 Genet Fernandez MD / ziggy Interpreting Provider: Genet Fernandez MD Consult Discharge Plan - Plan Referrals: Miky Garcia, [Primary Care Provider] -
[2017-03-12 12:00] LABS: BUN/Creatinine Ratio 10 (6-26); Blood Urea Nitrogen 8 mg/dL (8-23); Carbon Dioxide 20 mEq/L (23-29); Chloride 104 mEq/L (98-107); Glucose 124 mg/dL (70-105); Magnesium 1.6 mg/dL (1.6-2.6); Osmolality,Calculated 286 (280-300); Phosphorous 3.3 mg/dL (2.7-4.5); Potassium 2.9 mEq/L (3.5-5.1); Sodium 138 mEq/L (136-145); eGFR For African Americans > 60 (> 60); eGFR For Non-African Americans > 60 (> 60)
--- NOTE | 2017-03-12 13:07 | Event Note ---
Date of Encounter: 03/12/17 Time of Encounter: 13:00 - Cardiology Event Note Discussed TTE findings with Dr. Stiles. EF preserved per TTE, no significant valvular dysfunction. Ms. Michele is an acceptable risk candidate to proceed with intermediate risk surgery. No further recommendations from Cardiology, will sign-off. Please call with questions. Echocardiogram 03/11/17 13:31 Impressions: LVEF 55-60%. Normal LV chamber size, wall thickness and function. Mild left ventricular diastolic dysfunction. Normal right ventricular structure and function. Mild aortic regurgitation. No evidence of pulmonary hypertension. Left Ventricular Wall Motion: Rest Echo Findings All wall segments showed normal motion.
[2017-03-12] MEDS: Ondansetron 4 MG/2 ML VIAL IVP SCH ×2 (14:39→17:42)
[2017-03-12] MEDS ORDERED: Acetaminophen IV 1,000 MG/100 ML INFUS..BTL ONE (20:16)
[2017-03-12] MEDS ORDERED: *HR* FentaNYL (PF) 100 MCG/2 ML VIAL ONE ×2 (20:19→20:37)
[2017-03-12] MEDS ORDERED: *HR* Propofol 200 MG/20 ML VIAL IVP ONE (20:19)
[2017-03-12] MEDS ORDERED: *HR* Rocuronium Bromide 50 MG/5 ML VIAL ONE ×2 (20:23→23:01)
[2017-03-12] MEDS ORDERED: Ondansetron 4 MG/2 ML VIAL ONE (21:14)
[2017-03-12] MEDS ORDERED: Dexamethasone 4 MG/ML VIAL ONE (21:14)
[2017-03-12] MEDS ORDERED: Neostigmine Methylsulfate 3 MG/3 ML SYRINGE ONE (22:43)
[2017-03-12] MEDS ORDERED: *HR* HYDROmorphone (PF) 1 MG/ML SYRINGE IVP PRN (23:41)
[2017-03-12] MEDS ORDERED: Ondansetron 4 MG/2 ML VIAL IVP ONE (23:41)
[2017-03-13] MEDS ORDERED: Acetaminophen 325 MG TABLET PO PRN (00:52)
[2017-03-13] MEDS ORDERED: 0.9 % Sodium Chloride 1,000 ML IVC SCH (00:52)
[2017-03-13] MEDS ORDERED: Naloxone 0.4 MG/ML INJ IVP PRN (00:52)
[2017-03-13] MEDS ORDERED: *HR* Promethazine 25 MG/ML VIAL IVP PRN (00:52)
--- NOTE | 2017-03-13 01:19 | Anesthesia Evaluation Post Op ---
Date of Encounter: 03/13/17 Time of Encounter: 00:05 - Vital Signs Vital Signs: Vital Signs/O2 Sat/Glucose, Most Current Temp Pulse Resp BP Pulse Ox 03/13/17 00:58 97.6 F 62 16 156/79 99 03/13/17 00:44 97.5 F L 85 16 164/80 97 03/13/17 00:43 97 03/13/17 00:21 97.4 F L 64 16 156/95 100 03/13/17 00:11 63 16 163/85 100 03/13/17 00:01 68 16 155/113 100 03/12/17 23:51 97.6 F 112 16 184/118 100 - Lungs Lungs: Clear Ascult./Percussion - Airway Airway: Non-obstructed - Cardiovascular Regular Rate - Mental Status Mental Status: Alert & Oriented, Answers Appropriately - Pain Pain Scale: 1 - Nausea Vomiting Nausea Vomiting: Not Present - Hydration Hydration: NPO - Discharge PostOp Status: Transfer Patient to floor
[2017-03-13] MEDS: *HR* HYDROmorphone 20 MG/20 ML PCA IVC PRN (02:20)
[2017-03-13] MEDS: Ondansetron 4 MG/2 ML VIAL IVP SCH ×5 (05:06→19:54)
[2017-03-13 05:53] LABS: BUN/Creatinine Ratio 8 (6-26); Blood Urea Nitrogen 6 mg/dL (8-23); Calcium 8.6 mg/dL (8.6-10.3); Carbon Dioxide 24 mEq/L (23-29); Chloride 105 mEq/L (98-107); Glucose 131 mg/dL (70-105); Magnesium 1.6 mg/dL (1.6-2.6); Osmolality,Calculated 281 (280-300); Phosphorous 3.1 mg/dL (2.7-4.5); Potassium 3.5 mEq/L (3.5-5.1); Sodium 136 mEq/L (136-145); eGFR For African Americans > 60 (> 60); eGFR For Non-African Americans > 60 (> 60)
[2017-03-13 05:58] LABS: Basophils # 0.1 K/mcL (0.0-0.2); Basophils % 0.2 %; Hematocrit 36.4 % (35.3-44.9); Hemoglobin 11.7 g/dL (11.5-15.4); Immature Granulocytes % 1.1 % (0-4); Lymphocytes % 4.2 %; Mean Corpuscular HGB Conc 32.1 g/dL (31.6-35.5); Mean Corpuscular Hemoglobin 28.7 pg (28.0-33.3); Mean Corpuscular Volume 89.2 fL (83.0-100.0); Mean Platelet Volume 10.5 fL (9.4-12.4); Monocytes # 1.6 K/mcL (0.0-1.3); Monocytes % 6.7 %; Neutrophils # 21.5 K/mcL (1.6-8.9); Platelet Count 264 K/mcL (140-400); Red Blood Count 4.08 M/mcL (3.82-4.97); Red Cell Distribution Width 14.4 % (11.5-14.5); Segmented Neutrophils % 87.8 %
[2017-03-13] MEDS: *HR* Enoxaparin 40 MG/0.4 ML SYRINGE SQ SCH (06:11)
[2017-03-13 07:03] LABS: Platelet Estimate Normal (Normal)
[2017-03-13] MEDS: MetroNIDAZOLE 500 MG/100 ML 500 MG/100 ML BAG IVPB SCH ×2 (08:31→16:27)
[2017-03-13] MEDS: hydroCHLOROthiazide 25 MG TABLET PO SCH (08:31)
--- NOTE | 2017-03-13 13:33 | General Surgery Progress Note ---
Date of Encounter: 03/13/17 Time of Encounter: 13:33 - Assessment and Plan (1) Rectovaginal fistula Current Visit: Yes Status: Acute s/p Robotic Sigmoid Resection, FLIP drain placement 03/13/2017: POD #1 Wicking noted in the most inferior incision-small amount of Sanguineous drainage noted on dressing -Right FLIP drain site WNL. 80 ml Sanguineous drainage emptied from bulb at the time of this assessment -States one brief episode of nausea this a.m. NG remains too low intermittent wall suction. Approximately 40 ML's of clear/brown material noted. -Mondragon catheter in place -sitting at bedside. She has ambulated with assistance today. -Absent bowel sounds -WBC 24.5, without bandemia (likely reactionary) Plan: 1. Continue supportive care and discomfort management a) Await return of bowel function b) continue NG to LIWS. May have ice chips and hard candy for pleasure. Cepacol at bedside for sore throat Will consider clears when she is passing flatus c) Add scheduled Toradol d) Continue PRN PHYSICIAN ASSISTANT CERTIFIED e) d/c mondragon f) Decrease fluids to 65 ml/hr (to replace 1500 ml per day) to reduce risk of fluid overload g) PT/OT for mobilization and d/c planning (possibly to rehab 03/17 pending clinical course) h) Repeat am labs i) Continue Cipro/Flagyl per GUN recommendations (day 2 of 14) j) Maintain FLIP drain to bulb suction k) daily wound care: remove dressing and packing. Wash with soap and water. Repack for wicking with 1/4 in plain gauze. Cover with a dry dressing. 2. Continue GI and DVT prophylaxis 3. Continue pulmonary toileting a) out of bed at least 3 times daily b) incentive spirometry Q1 hour while awake Pt may shower with assistance (may clamp IVs and NG for ambulation/shower) (2) Cardiomyopathy Current Visit: Yes Status: Acute Cardiomyopathy per patient report. No records available for review at this time. Management per primary medicine. See plan above for fluid status Qualifiers: Cardiomyopathy type: unspecified Qualified Code(s): I42.9 - Cardiomyopathy , unspecified Subjective Patient reports: no new complaints, feels better, still having pain, voiding w/ o difficulty (Per mondragon catheter), no flatus, no bowel movement, nausea (Brief intermittent episode this am), afebrile Objective Vital Signs - Last 8 Hours Temp Pulse Resp BP Pulse Ox 03/13/17 12:06 99.2 F 77 18 108/65 97 03/13/17 11:31 97.6 F 96 18 138/80 99 03/13/17 06:53 97.9 F 89 18 127/75 98 Intake and Output 03/12/17 03/13/17 03/13/17 23:59 07:59 15:59 Intake Total 100 / 100 0 / 0 300 / 300 Output Total 325 / 325 320 / 320 600 / 600 Balance -225 / -225 -320 / -320 -300 / -300 Intake: IV Fluids 100 / 100 300 / 300 Cipro Premix 400 MG/200 ML 400 200 / 200 mg In 200 ml @ 200 mls/hr IVPB Q12HR [facility] Rx#:[id number] Flagyl Premix 500 MG/100 ML 500 100 / 100 mg In 100 ml @ 100 mls/hr IVPB Q8HR [facility] Rx#:[id number] Potassium Chloride 10 mEq/100mL 100 / 100 10 meq In 100 ml @ 100 mls/hr IVPB Q1H [facility] Rx#:[id number] Oral 0 / 0 0 / 0 0 / 0 Output: Urine 300 / 300 600 / 600 Estimated Blood Loss 25 / 25 Catheter 250 / 250 Gastric Drainage 0 / 0 0 / 0 Wound Drainage 70 / 70 Right Upper Abdomen 70 / 70 Other: Meal NPO Percent of Meal Consumed 0% Weight 56.92 kg Blood Glucose* 137 151 244 Patient Weight 03/13/17 23:59 Weight 56.92 kg - General physical appearance no distress - Eyes normal ocular movement - ENT atraumatic, normocephalic - Neck Neck exam: trachea midline, no venous distension - Respiratory normal expansion, normal respiratory effort, clear to auscultation - Cardiovascular Cardiovascular exam: Present: RRR, murmurs - Abdomen Abdomen: Present: soft, tender (Expected postoperative), wound (Right FLIP with 80 ml SS drainage in bulb). Absent: bowel sounds present (ABSENT) Hernia: none - Incision Incision: Present: clean and dry, open (Open areas for preemptive wicking in the inferior most incision; Sangineous) - Integumentary no abnormal pigmentation - Neurologic normal coordination, normal sensation - Musculoskeletal normal posture, other (Sitting upright in chair at bedside) - Psychiatric oriented to time, oriented to person, oriented to place, speech is normal, memory intact - Labs 03/13/17 05:04 03/13/17 05:04 Diabetes panel 03/13/17 Range/Units 05:04 Sodium 136 (136-145) mEq/L Potassium 3.5 (3.5-5.1) mEq/L Chloride 105 (98-107) mEq/L Carbon Dioxide 24 (23-29) mEq/L BUN 6 L (8-23) mg/dL Creatinine 0.79 (0.60-1.20) mg/dL Glucose 131 H (70-105) mg/dL Calcium 8.6 (8.6-10.3) mg/dL Calcium panel 03/13/17 Range/Units 05:04 Calcium 8.6 (8.6-10.3) mg/dL Phosphorus 3.1 (2.7-4.5) mg/dL Pituitary panel 03/13/17 Range/Units 05:04 Sodium 136 (136-145) mEq/L Potassium 3.5 (3.5-5.1) mEq/L Chloride 105 (98-107) mEq/L Carbon Dioxide 24 (23-29) mEq/L BUN 6 L (8-23) mg/dL Creatinine 0.79 (0.60-1.20) mg/dL Glucose 131 H (70-105) mg/dL Calcium 8.6 (8.6-10.3) mg/dL Adrenal panel 03/13/17 Range/Units 05:04 Sodium 136 (136-145) mEq/L Potassium 3.5 (3.5-5.1) mEq/L Chloride 105 (98-107) mEq/L Carbon Dioxide 24 (23-29) mEq/L BUN 6 L (8-23) mg/dL Creatinine 0.79 (0.60-1.20) mg/dL Glucose 131 H (70-105) mg/dL Calcium 8.6 (8.6-10.3) mg/dL - VTE Documentation of Mechanical Device: Intermittent pneumatic compression device Consult Discharge Plan - Plan Referrals: Miky Garcia DO [Primary Care Provider] -
[2017-03-13] MEDS ORDERED: Furosemide 20 MG/2 ML VIAL IVP ONE (14:11)
--- NOTE | 2017-03-13 14:38 | Internal Med Progress Note ---
Date of Encounter: 03/13/17 Time of Encounter: 13:40 - Assessment and plan (1) Rectovaginal fistula Current Visit: Yes Status: Acute Assessment and plan: POD #1: Robotic Sigmoid Resection, DARLING drain placement 03/13/2017 vaginal culture positive for gram negative kenyatta: on Ciprofloxacin and Flagyl ( Day 2/14) continue post op care as per surgery (2) DVT prophylaxis Current Visit: Yes Status: Acute Assessment and plan: lovenox SQ (3) Melena Current Visit: Yes Status: Resolved (4) Electrolyte abnormality Current Visit: Yes Status: Resolved - Subjective Interval history: Patient seen and examined at bedside. Sitting in chair. Denies any pain discomfort at this time POD #1: Robotic Sigmoid Resection, DARLING drain placement 03/13/[address], pain appropriately control surgery on board - Constitutional Vitals: Temp Pulse Resp BP Pulse Ox 99.2 F 77 18 108/65 97 03/13/17 12:06 03/13/17 12:06 03/13/17 12:06 03/13/17 12:06 03/13/17 12:06 General appearance: Present: A&O X 3 (NGT in place), no acute distress, answers questions appropriately - Head Head exam: Present: atraumatic, normocephalic - Eye Eye exam: Present: conjuntiva pink, sclera anicteric - Respiratory Respiratory exam: Present: CTAB. Absent: accessory muscle use, rales, rhonchi, wheezes - Cardiovascular Cardiovascular exam: Present: RRR, +S1, +S2. Absent: diastolic murmur, gallop, rubs, systolic murmur - GI/Abdominal GI/Abdominal exam: Present: normal bowel sounds, soft, no peritoneal signs. Absent: distended, tenderness Additional comments: midline surgical dressing intact, darling drain in place - Extremities Exam Extremities exam: Present: warm, radial pulses palpable and symmetrical. Absent : calf tenderness, cyanotic, pedal edema - Neurological Exam Neurological exam: Present: alert, oriented X3 Internal Medicine: Result - Labs CBC & Chem 7: 03/13/17 05:04 03/13/17 05:04 Labs: Short CBC 03/13/17 Range/Units 05:04 WBC 24.5 H D (4.3-11.1) K/mcL Hgb 11.7 (11.5-15.4) g/dL Hct 36.4 (35.3-44.9) % Plt Count 264 (140-400) K/mcL Neutrophils # 21.5 H (1.6-8.9) K/mcL BMP 03/13/17 05:04 Sodium 136 Potassium 3.5 Chloride 105 Carbon Dioxide 24 BUN 6 L Creatinine 0.79 Glucose 131 H Calcium 8.6 - ABG Interpretation ABG results: PT/INR, D-dimer PT 13.1 Seconds (9.4-12.1) H 03/12/17 04:24 - VTE Documentation of Mechanical Device: Intermittent pneumatic compression device Consult Discharge Plan - Plan Referrals: Miky Garcia DO [Primary Care Provider] -
[2017-03-13] MEDS: 0.9 % Sodium Chloride 1,000 ML IVC SCH (16:28)
[2017-03-13] MEDS: Ketorolac 15 MG/ML VIAL IVP SCH (19:53)
[2017-03-14] MEDS: Ondansetron 4 MG/2 ML VIAL IVP SCH ×6 (00:07→20:26)
[2017-03-14] MEDS: MetroNIDAZOLE 500 MG/100 ML 500 MG/100 ML BAG IVPB SCH ×3 (00:07→16:31)
[2017-03-14] MEDS: Ketorolac 15 MG/ML VIAL IVP SCH ×4 (00:08→16:31)
[2017-03-14] MEDS: 0.9 % Sodium Chloride 1,000 ML IVC SCH (02:58)
[2017-03-14 03:55] LABS: Basophils # 0.1 K/mcL (0.0-0.2); Basophils % 0.3 %; Eosinophils # 0.1 K/mcL (0.0-0.6); Eosinophils % 0.3 %; Hematocrit 34.6 % (35.3-44.9); Hemoglobin 11.1 g/dL (11.5-15.4); Immature Granulocytes % 0.7 % (0-4); Lymphocytes # 2.2 K/mcL (0.6-4.6); Lymphocytes % 13.9 %; Mean Corpuscular HGB Conc 32.1 g/dL (31.6-35.5); Mean Corpuscular Hemoglobin 28.4 pg (28.0-33.3); Mean Corpuscular Volume 88.5 fL (83.0-100.0); Mean Platelet Volume 10.8 fL (9.4-12.4); Monocytes # 2.1 K/mcL (0.0-1.3); Monocytes % 13.2 %; Neutrophils # 11.1 K/mcL (1.6-8.9); Platelet Count 256 K/mcL (140-400); Red Blood Count 3.91 M/mcL (3.82-4.97); Red Cell Distribution Width 14.5 % (11.5-14.5); Segmented Neutrophils % 71.6 %
[2017-03-14 05:03] LABS: BUN/Creatinine Ratio 11 (6-26); Blood Urea Nitrogen 9 mg/dL (8-23); Calcium 8.5 mg/dL (8.6-10.3); Carbon Dioxide 23 mEq/L (23-29); Chloride 106 mEq/L (98-107); Glucose 102 mg/dL (70-105); Magnesium 1.4 mg/dL (1.6-2.6); Osmolality,Calculated 285 (280-300); Potassium 3.1 mEq/L (3.5-5.1); Sodium 138 mEq/L (136-145); eGFR For African Americans > 60 (> 60); eGFR For Non-African Americans > 60 (> 60)
[2017-03-14] MEDS: *HR* Enoxaparin 40 MG/0.4 ML SYRINGE SQ SCH (05:29)
[2017-03-14] MEDS: hydroCHLOROthiazide 25 MG TABLET PO SCH (09:01)
--- NOTE | 2017-03-14 15:37 | General Surgery Progress Note ---
Date of Encounter: 03/14/17 Time of Encounter: 12:00 - Assessment and Plan (1) Rectovaginal fistula Current Visit: Yes Status: Chronic (2) S/P partial colectomy Current Visit: Yes Status: Acute pod #1 robotic sigmoid resection and small tex fistula repair no flatus, continue ngt, likely dc tomorrow patient is belching currently catheter removed - void trial npo ok ice chips pt is OOB in chair pain controlled with manager convention no nausea-prn antiemetics up to 1999 on IS Subjective Patient reports: no new complaints, feels better, still having pain, pain is less, no flatus, no bowel movement, afebrile Narrative: no nausea, feels bloated Objective Vital Signs - Last 8 Hours Temp Pulse Resp BP Pulse Ox 03/14/17 12:14 98.6 F 100 14 153/88 95 Intake and Output 03/13/17 03/14/17 03/14/17 23:59 07:59 15:59 Intake Total 300 / 300 1300 / 1300 0 / 0 Output Total 1620 / 1620 170 / 170 160 / 160 Balance -1320 / -1320 1130 / 1130 -160 / -160 Intake: IV Fluids 300 / 300 1300 / 1300 0.9 % Sodium Chloride 1,000 ML 1000 / 1000 @ 65 mls/hr IVC .[id number] [facility] Rx #:[id number] Cipro Premix 400 MG/200 ML 400 200 / 200 200 / 200 mg In 200 ml @ 200 mls/hr IVPB Q12HR [facility] Rx#:[id number] Flagyl Premix 500 MG/100 ML 500 100 / 100 100 / 100 mg In 100 ml @ 100 mls/hr IVPB Q8HR [facility] Rx#:[id number] Oral 0 / 0 Output: Urine 0 / 0 Catheter 1500 / 1500 150 / 150 Gastric Drainage 100 / 100 100 / 100 Right Nare 100 / 100 Wound Drainage 20 / 20 20 / 20 60 / 60 Right Upper Abdomen 20 / 20 20 / 20 60 / 60 Other: Meal NPO Percent of Meal Consumed 0% Weight 56.9 kg Blood Glucose* 106 100 Patient Weight 03/14/17 23:59 Weight 56.9 kg - General physical appearance well developed, well nourished, no distress - Eyes normal ocular movement - ENT dry mucosa, normocephalic - Neck Neck exam: trachea midline - Respiratory normal expansion, clear to auscultation - Cardiovascular Cardiovascular exam: Present: RRR - Abdomen Abdomen: Present: bowel sounds present, soft, tender (appropriate post op tenderness). Absent: guarding, rebound - Incision Incision: Present: clean and dry, serous, open (packed) - Integumentary no growths - Neurologic CN 2-12 grossly intact - Musculoskeletal normal posture - Psychiatric oriented to time, oriented to person, oriented to place, speech is normal, memory intact - Labs 03/14/17 03:10 03/14/17 03:10 Diabetes panel 03/14/17 Range/Units 03:10 Sodium 138 (136-145) mEq/L Potassium 3.1 L (3.5-5.1) mEq/L Chloride 106 (98-107) mEq/L Carbon Dioxide 23 (23-29) mEq/L BUN 9 (8-23) mg/dL Creatinine 0.84 (0.60-1.20) mg/dL Glucose 102 (70-105) mg/dL Calcium 8.5 L (8.6-10.3) mg/dL Calcium panel 03/14/17 Range/Units 03:10 Calcium 8.5 L (8.6-10.3) mg/dL Pituitary panel 03/14/17 Range/Units 03:10 Sodium 138 (136-145) mEq/L Potassium 3.1 L (3.5-5.1) mEq/L Chloride 106 (98-107) mEq/L Carbon Dioxide 23 (23-29) mEq/L BUN 9 (8-23) mg/dL Creatinine 0.84 (0.60-1.20) mg/dL Glucose 102 (70-105) mg/dL Calcium 8.5 L (8.6-10.3) mg/dL Adrenal panel 03/14/17 Range/Units 03:10 Sodium 138 (136-145) mEq/L Potassium 3.1 L (3.5-5.1) mEq/L Chloride 106 (98-107) mEq/L Carbon Dioxide 23 (23-29) mEq/L BUN 9 (8-23) mg/dL Creatinine 0.84 (0.60-1.20) mg/dL Glucose 102 (70-105) mg/dL Calcium 8.5 L (8.6-10.3) mg/dL - VTE Documentation of Mechanical Device: Intermittent pneumatic compression device Consult Discharge Plan - Plan Referrals: Miky Garcia DO [Primary Care Provider] -
--- NOTE | 2017-03-14 16:45 | Internal Med Progress Note ---
Date of Encounter: 03/14/17 Time of Encounter: 10:00 - Assessment and plan (1) Hypokalemia Current Visit: Yes Status: Acute Assessment and plan: We will give potassium phosphate today and add potassium chloride to her IV fluids. Check potassium and magnesium and phosphorus in the morning. (2) Hypomagnesemia Current Visit: Yes Status: Acute Assessment and plan: We will give 2 g magnesium sulfate once. (3) Rectovaginal fistula Current Visit: Yes Status: Chronic Assessment and plan: POD #2: Robotic Sigmoid Resection, FLIP drain placement 03/13/2017 vaginal culture positive for gram negative kenyatta: on Ciprofloxacin and Flagyl ( Day 314) continue post op care as per surgery (4) DM2 (diabetes mellitus, type 2) Current Visit: Yes Status: Ruled-out Assessment and plan: It was documented during this admission the patient has type 2 diabetes. This diagnosis was ruled out. Hemoglobin A1c in our records on 03/08/2017 was 5.0 therefore the patient does not have diabetes. Qualifiers: Diabetes mellitus complication status: without complication Diabetes mellitus intermediate frame tender insulin use: without intermediate frame tender use Qualified Code(s): E11.9 - Type 2 diabetes mellitus without complications (5) DVT prophylaxis Current Visit: Yes Status: Acute Assessment and plan: lovenox SQ - Subjective Interval history: Patient reports mild to moderate dull aching abdominal pain, worse with movement. Denies nausea. She denies passing the bowel movement and denies passing gas. Pain is controlled with IV pain medication. - Constitutional Vitals: Temp Pulse Resp BP Pulse Ox 98.6 F 100 14 153/88 95 03/14/17 12:14 03/14/17 12:14 03/14/17 12:14 03/14/17 12:14 03/14/17 12:14 General appearance: Present: A&O X 3 (NGT in place), no acute distress, answers questions appropriately - Respiratory Respiratory exam: Present: CTAB. Absent: accessory muscle use, rales, rhonchi, wheezes - Cardiovascular Cardiovascular exam: Present: RRR, +S1, +S2. Absent: diastolic murmur, gallop, rubs, systolic murmur - GI/Abdominal GI/Abdominal exam: Present: normal bowel sounds, soft, no peritoneal signs. Absent: distended, tenderness Additional comments: Surgical incisions covered with dressing clean dry and intact. - Extremities Exam Extremities exam: Present: warm, radial pulses palpable and symmetrical. Absent : calf tenderness, cyanotic, pedal edema - Skin Skin exam: Present: dry, intact Internal Medicine: Result - Labs CBC & Chem 7: 03/14/17 03:10 03/14/17 03:10 Labs: Short CBC 03/14/17 Range/Units 03:10 WBC 15.6 H (4.3-11.1) K/mcL Hgb 11.1 L (11.5-15.4) g/dL Hct 34.6 L (35.3-44.9) % Plt Count 256 (140-400) K/mcL Neutrophils # 11.1 H (1.6-8.9) K/mcL BMP 03/14/17 03:10 Sodium 138 Potassium 3.1 L Chloride 106 Carbon Dioxide 23 BUN 9 Creatinine 0.84 Glucose 102 Calcium 8.5 L - ABG Interpretation ABG results: PT/INR, D-dimer PT 13.1 Seconds (9.4-12.1) H 03/12/17 04:24 - VTE Documentation of Mechanical Device: Intermittent pneumatic compression device Consult Discharge Plan - Plan Referrals: Miky Garcia DO [Primary Care Provider] -
[2017-03-14] MEDS: 0.9 % Sodium Chloride w KCl 20 MEQ/1,000 ML MLS IVC SCH (17:48)
[2017-03-15] MEDS: Ketorolac 15 MG/ML VIAL IVP SCH ×5 (00:08→23:39)
[2017-03-15] MEDS: Ondansetron 4 MG/2 ML VIAL IVP SCH ×6 (00:08→19:41)
[2017-03-15] MEDS: MetroNIDAZOLE 500 MG/100 ML 500 MG/100 ML BAG IVPB SCH ×4 (00:08→23:38)
[2017-03-15 03:43] LABS: Basophils # 0.1 K/mcL (0.0-0.2); Basophils % 0.4 %; Eosinophils # 0.2 K/mcL (0.0-0.6); Eosinophils % 1.9 %; Hematocrit 31.2 % (35.3-44.9); Immature Granulocytes % 0.8 % (0-4); Lymphocytes # 1.9 K/mcL (0.6-4.6); Lymphocytes % 15.7 %; Mean Corpuscular HGB Conc 32.1 g/dL (31.6-35.5); Mean Corpuscular Hemoglobin 28.9 pg (28.0-33.3); Mean Corpuscular Volume 90.2 fL (83.0-100.0); Mean Platelet Volume 10.1 fL (9.4-12.4); Monocytes # 1.5 K/mcL (0.0-1.3); Monocytes % 12.7 %; Neutrophils # 8.3 K/mcL (1.6-8.9); Platelet Count 233 K/mcL (140-400); Red Blood Count 3.46 M/mcL (3.82-4.97); Red Cell Distribution Width 14.5 % (11.5-14.5); Segmented Neutrophils % 68.5 %
[2017-03-15 04:10] LABS: BUN/Creatinine Ratio 17 (6-26); Blood Urea Nitrogen 13 mg/dL (8-23); Calcium 8.5 mg/dL (8.6-10.3); Carbon Dioxide 24 mEq/L (23-29); Chloride 107 mEq/L (98-107); Glucose 88 mg/dL (70-105); Osmolality,Calculated 288 (280-300); Potassium 3.2 mEq/L (3.5-5.1); Sodium 139 mEq/L (136-145); eGFR For African Americans > 60 (> 60); eGFR For Non-African Americans > 60 (> 60)
[2017-03-15] MEDS: *HR* Enoxaparin 40 MG/0.4 ML SYRINGE SQ SCH (05:15)
[2017-03-15] MEDS: hydroCHLOROthiazide 25 MG TABLET PO SCH (08:59)
[2017-03-15] MEDS: 0.9 % Sodium Chloride w KCl 20 MEQ/1,000 ML MLS IVC SCH ×2 (10:10→19:04)
[2017-03-15] MEDS ORDERED: Potassium Phosphate 44 MEQ in 0.9 % Sodium Chloride 250 ML IVPB ONE (10:12)
--- NOTE | 2017-03-15 10:33 | General Surgery Progress Note ---
Date of Encounter: 03/15/17 Time of Encounter: 10:31 - Assessment and Plan (1) Rectovaginal fistula Current Visit: Yes Status: Chronic Patient is s/p a robotic LAR. NGT in place-will clamp and check residual in 6 hours. If less than 400ml, then will DC NGT and start clears today. Subjective Patient reports: no new complaints, other (Patient states she had a BM. Noted flatus. No nausea or vomiting.) Objective Vital Signs - Last 8 Hours Temp Pulse Resp BP Pulse Ox 03/15/17 07:50 98.3 F 89 16 123/75 95 03/15/17 04:01 98.2 F 88 18 135/77 96 Intake and Output 03/14/17 03/15/17 03/15/17 23:59 07:59 15:59 Intake Total 100 / 100 805 / 805 100 / 100 Output Total 0 / 0 50 / 50 Balance 100 / 100 755 / 755 100 / 100 Intake: IV Fluids 100 / 100 805 / 805 100 / 100 Cipro Premix 400 MG/200 ML 400 400 / 400 mg In 200 ml @ 200 mls/hr IVPB Q12HR [facility] Rx#:[id number] Magnesium Sulfate Premix 2gm/ 50 / 50 50mL 2 gm In 50 ml @ 48.077 mls /hr IVPB ONCE ONE Rx#: [id number] Flagyl Premix 500 MG/100 ML 500 100 / 100 100 / 100 100 / 100 mg In 100 ml @ 100 mls/hr IVPB Q8HR [facility] Rx#:[id number] Potassium Phosphate 22 MEQ In 0 255 / 255 .9 % Sodium Chloride 250 ML @ 40 mls/hr IVPB ONCE ONE Rx#: [id number] Oral 0 / 0 0 / 0 Output: Urine 0 / 0 0 / 0 Wound Drainage 50 / 50 Right Upper Abdomen 50 / 50 Other: Meal NPO Stool Size Small Stool Consistency loose liquid Stool Color Brown # Voids 1 # Bowel Movements 1 Blood Glucose* 98 - General physical appearance well nourished, no distress - Abdomen Abdomen: Present: bowel sounds present, soft, non tender (Noted lower midline incision with packing in place. No erythema. No drainage.) - Labs 03/15/17 03:33 03/15/17 03:33 Diabetes panel 03/15/17 Range/Units 03:33 Sodium 139 (136-145) mEq/L Potassium 3.2 L (3.5-5.1) mEq/L Chloride 107 (98-107) mEq/L Carbon Dioxide 24 (23-29) mEq/L BUN 13 (8-23) mg/dL Creatinine 0.76 (0.60-1.20) mg/dL Glucose 88 (70-105) mg/dL Calcium 8.5 L (8.6-10.3) mg/dL Calcium panel 03/15/17 03/15/17 Range/Units 03:33 03:33 Calcium 8.5 L (8.6-10.3) mg/dL Phosphorus 1.9 L (2.7-4.5) mg/dL Pituitary panel 03/15/17 Range/Units 03:33 Sodium 139 (136-145) mEq/L Potassium 3.2 L (3.5-5.1) mEq/L Chloride 107 (98-107) mEq/L Carbon Dioxide 24 (23-29) mEq/L BUN 13 (8-23) mg/dL Creatinine 0.76 (0.60-1.20) mg/dL Glucose 88 (70-105) mg/dL Calcium 8.5 L (8.6-10.3) mg/dL Adrenal panel 03/15/17 Range/Units 03:33 Sodium 139 (136-145) mEq/L Potassium 3.2 L (3.5-5.1) mEq/L Chloride 107 (98-107) mEq/L Carbon Dioxide 24 (23-29) mEq/L BUN 13 (8-23) mg/dL Creatinine 0.76 (0.60-1.20) mg/dL Glucose 88 (70-105) mg/dL Calcium 8.5 L (8.6-10.3) mg/dL - VTE Documentation of Mechanical Device: Intermittent pneumatic compression device Consult Discharge Plan - Plan Referrals: Miky Garcia DO [Primary Care Provider] -
--- NOTE | 2017-03-15 16:56 | Internal Med Progress Note ---
Date of Encounter: 03/15/17 Time of Encounter: 14:00 - Assessment and plan (1) Hypokalemia Current Visit: Yes Status: Acute Assessment and plan: We will repeat potassium phosphate today and continue potassium chloride with her IV fluids. Check potassium, magnesium and phosphorus in the morning. (2) Hypomagnesemia Current Visit: Yes Status: Acute Assessment and plan: Solomon level within normal limits to today. (3) Rectovaginal fistula Current Visit: Yes Status: Chronic Assessment and plan: POD #2: Robotic Sigmoid Resection, FLIP drain placement 03/13/2017 vaginal culture positive for gram negative kenyatta: on Ciprofloxacin and Flagyl ( Day 314) continue post op care as per surgery (4) DM2 (diabetes mellitus, type 2) Current Visit: Yes Status: Ruled-out Assessment and plan: Ruled out. Qualifiers: Diabetes mellitus complication status: without complication Diabetes mellitus buttermaker helper insulin use: without buttermaker helper use Qualified Code(s): E11.9 - Type 2 diabetes mellitus without complications (5) DVT prophylaxis Current Visit: Yes Status: Acute Assessment and plan: lovenox SQ - Subjective Interval history: Patient reports mild, aching abdominal pain, significantly improved from yesterday. Denies nausea. She had a bowel movement this morning. She reports passing gas. - Constitutional Vitals: Temp Pulse Resp BP Pulse Ox 98.3 F 101 18 152/81 96 03/15/17 12:01 03/15/17 12:01 03/15/17 12:01 03/15/17 12:01 03/15/17 12:01 General appearance: Present: A&O X 3 (NGT in place), no acute distress, answers questions appropriately - Eye Eye exam: Present: PERRL, conjuntiva pink, sclera anicteric Pupils: Present: PERRL - Respiratory Respiratory exam: Present: CTAB. Absent: accessory muscle use, rales, rhonchi, wheezes - Cardiovascular Cardiovascular exam: Present: RRR, +S1, +S2. Absent: diastolic murmur, gallop, rubs, systolic murmur - GI/Abdominal GI/Abdominal exam: Present: normal bowel sounds, soft, no peritoneal signs. Absent: distended, tenderness Internal Medicine: Result - Labs CBC & Chem 7: 03/15/17 03:33 03/15/17 03:33 Labs: Short CBC 03/15/17 Range/Units 03:33 WBC 12.1 H (4.3-11.1) K/mcL Hgb 10.0 L (11.5-15.4) g/dL Hct 31.2 L (35.3-44.9) % Plt Count 233 (140-400) K/mcL Neutrophils # 8.3 (1.6-8.9) K/mcL BMP 03/15/17 03:33 Sodium 139 Potassium 3.2 L Chloride 107 Carbon Dioxide 24 BUN 13 Creatinine 0.76 Glucose 88 Calcium 8.5 L - ABG Interpretation ABG results: PT/INR, D-dimer PT 13.1 Seconds (9.4-12.1) H 03/12/17 04:24 - VTE Documentation of Mechanical Device: Intermittent pneumatic compression device Consult Discharge Plan - Plan Referrals: Miky Garcia DO [Primary Care Provider] -
[2017-03-15] MEDS: *HR* HYDROmorphone 20 MG/20 ML PCA IVC PRN (21:56)
[2017-03-16] MEDS: Ondansetron 4 MG/2 ML VIAL IVP SCH ×6 (02:18→20:38)
[2017-03-16 05:11] LABS: Basophils # 0.1 K/mcL (0.0-0.2); Basophils % 0.5 %; Eosinophils # 0.4 K/mcL (0.0-0.6); Eosinophils % 2.9 %; Hematocrit 32.7 % (35.3-44.9); Hemoglobin 10.3 g/dL (11.5-15.4); Immature Granulocytes % 0.9 % (0-4); Lymphocytes # 1.9 K/mcL (0.6-4.6); Lymphocytes % 15.8 %; Mean Corpuscular HGB Conc 31.5 g/dL (31.6-35.5); Mean Corpuscular Hemoglobin 28.5 pg (28.0-33.3); Mean Corpuscular Volume 90.3 fL (83.0-100.0); Mean Platelet Volume 10.6 fL (9.4-12.4); Monocytes # 1.4 K/mcL (0.0-1.3); Monocytes % 11.7 %; Neutrophils # 8.1 K/mcL (1.6-8.9); Platelet Count 232 K/mcL (140-400); Red Blood Count 3.62 M/mcL (3.82-4.97); Red Cell Distribution Width 14.6 % (11.5-14.5); Segmented Neutrophils % 68.2 %
[2017-03-16] MEDS: Ketorolac 15 MG/ML VIAL IVP SCH ×3 (05:18→16:51)
[2017-03-16 05:24] LABS: BUN/Creatinine Ratio 19 (6-26); Blood Urea Nitrogen 12 mg/dL (8-23); Calcium 8.7 mg/dL (8.6-10.3); Carbon Dioxide 24 mEq/L (23-29); Chloride 110 mEq/L (98-107); Glucose 89 mg/dL (70-105); Magnesium 1.8 mg/dL (1.6-2.6); Osmolality,Calculated 289 (280-300); Potassium 3.7 mEq/L (3.5-5.1); Sodium 140 mEq/L (136-145); eGFR For African Americans > 60 (> 60); eGFR For Non-African Americans > 60 (> 60)
[2017-03-16] MEDS: *HR* Enoxaparin 40 MG/0.4 ML SYRINGE SQ SCH (05:24)
[2017-03-16] MEDS: hydroCHLOROthiazide 25 MG TABLET PO SCH (07:46)
[2017-03-16] MEDS: MetroNIDAZOLE 500 MG/100 ML 500 MG/100 ML BAG IVPB SCH ×2 (07:47→14:55)
[2017-03-16] MEDS ORDERED: *HR* HYDROmorphone 2 MG/ML SYRINGE IVP PRN (08:32)
--- NOTE | 2017-03-16 08:41 | General Surgery Progress Note ---
Date of Encounter: 03/16/17 Time of Encounter: 08:39 - Assessment and Plan (1) Rectovaginal fistula Current Visit: Yes Status: Chronic Will advance diet to full liquids. Heplock IVF. DC CREDIT RATING CHECKER and start oral pain meds with IV pain medication for severe discomfort. Subjective Patient reports: no new complaints, other (The patient feels as though she is doing very well. Minimal usage of the CREDIT RATING CHECKER. Tolerating clears. Two small bowel movements this am.) Objective Vital Signs - Last 8 Hours Temp Pulse Resp BP Pulse Ox 03/16/17 07:02 98.3 F 74 17 156/81 97 03/16/17 03:37 98.2 F 82 16 125/69 97 Intake and Output 03/15/17 03/16/17 03/16/17 23:59 07:59 15:59 Intake Total 1300 / 1300 100 / 100 Output Total 40 / 40 210 / 210 Balance 1260 / 1260 -110 / -110 Intake: IV Fluids 1300 / 1300 100 / 100 KCl 20 mEq in 0.9% Sodium 1000 / 1000 Chloride 20 meq In 1,000 ml @ 75 mls/hr IVC .[id number] [facility] Rx#: [id number] Cipro Premix 400 MG/200 ML 400 200 / 200 mg In 200 ml @ 200 mls/hr IVPB Q12HR [facility] Rx#:[id number] Flagyl Premix 500 MG/100 ML 500 100 / 100 100 / 100 mg In 100 ml @ 100 mls/hr IVPB Q8HR [facility] Rx#:[id number] Output: Urine 0 / 0 200 / 200 Wound Drainage 40 / 40 10 / 10 Right Upper Abdomen 40 / 40 10 / 10 Other: Stool Size Smear Stool Consistency loose Stool Color Yellow Green # Voids 2 Weight 56.9 kg Patient Weight 03/16/17 23:59 Weight 56.9 kg - General physical appearance well nourished, no distress - Incision Incision: Present: clean and dry (Dressing intact) - Labs 03/16/17 04:35 03/16/17 04:35 Diabetes panel 03/16/17 Range/Units 04:35 Sodium 140 (136-145) mEq/L Potassium 3.7 (3.5-5.1) mEq/L Chloride 110 H (98-107) mEq/L Carbon Dioxide 24 (23-29) mEq/L BUN 12 (8-23) mg/dL Creatinine 0.63 (0.60-1.20) mg/dL Glucose 89 (70-105) mg/dL Calcium 8.7 (8.6-10.3) mg/dL Calcium panel 03/16/17 Range/Units 04:35 Calcium 8.7 (8.6-10.3) mg/dL Pituitary panel 03/16/17 Range/Units 04:35 Sodium 140 (136-145) mEq/L Potassium 3.7 (3.5-5.1) mEq/L Chloride 110 H (98-107) mEq/L Carbon Dioxide 24 (23-29) mEq/L BUN 12 (8-23) mg/dL Creatinine 0.63 (0.60-1.20) mg/dL Glucose 89 (70-105) mg/dL Calcium 8.7 (8.6-10.3) mg/dL Adrenal panel 03/16/17 Range/Units 04:35 Sodium 140 (136-145) mEq/L Potassium 3.7 (3.5-5.1) mEq/L Chloride 110 H (98-107) mEq/L Carbon Dioxide 24 (23-29) mEq/L BUN 12 (8-23) mg/dL Creatinine 0.63 (0.60-1.20) mg/dL Glucose 89 (70-105) mg/dL Calcium 8.7 (8.6-10.3) mg/dL - VTE Documentation of Mechanical Device: Intermittent pneumatic compression device Consult Discharge Plan - Plan Referrals: Miky Garcia DO [Primary Care Provider] -
--- NOTE | 2017-03-16 14:51 | Internal Med Progress Note ---
Date of Encounter: 03/16/17 Time of Encounter: 11:00 - Assessment and plan (1) Hypokalemia Current Visit: Yes Status: Acute Assessment and plan: Potassium is within normal limits today. Stop IV fluids. Advance diet. Check potassium, magnesium and phosphorus in the morning. (2) Hypomagnesemia Current Visit: Yes Status: Acute Assessment and plan: Advance diet. Magnesium normal today. 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 Adequately controlled. Qualifiers: Hypertension type: essential hypertension Qualified Code(s): I10 - Essential (primary) hypertension - Subjective Interval history: Patient reports that her abdominal pain has resolved since yesterday. Denies nausea. She had a bowel movement this morning. She reports passing gas. NG tube was discontinued and she tolerated clear liquid diet this morning. - Constitutional Vitals: Temp Pulse Resp BP Pulse Ox 97.9 F 81 15 149/81 98 03/16/17 11:55 03/16/17 11:55 03/16/17 11:55 03/16/17 11:55 03/16/17 11:55 General appearance: Present: A&O X 3 (NGT in place), no acute distress, answers questions appropriately Exam: FLIP drain and surgical dressing noted. - Eye Eye exam: Present: PERRL, conjuntiva pink, sclera anicteric Pupils: Present: PERRL - Respiratory Respiratory exam: Present: CTAB. Absent: accessory muscle use, rales, rhonchi, wheezes - Cardiovascular Cardiovascular exam: Present: RRR, +S1, +S2. Absent: diastolic murmur, gallop, rubs, systolic murmur - GI/Abdominal GI/Abdominal exam: Present: normal bowel sounds, soft, no peritoneal signs. Absent: distended, tenderness - Skin Skin exam: Present: dry, intact Internal Medicine: Result - Labs CBC & Chem 7: 03/16/17 04:35 03/16/17 04:35 Labs: Short CBC 03/16/17 Range/Units 04:35 WBC 11.9 H (4.3-11.1) K/mcL Hgb 10.3 L (11.5-15.4) g/dL Hct 32.7 L (35.3-44.9) % Plt Count 232 (140-400) K/mcL Neutrophils # 8.1 (1.6-8.9) K/mcL BMP 03/16/17 04:35 Sodium 140 Potassium 3.7 Chloride 110 H Carbon Dioxide 24 BUN 12 Creatinine 0.63 Glucose 89 Calcium 8.7 - ABG Interpretation ABG results: PT/INR, D-dimer PT 13.1 Seconds (9.4-12.1) H 03/12/17 04:24 - VTE Documentation of Mechanical Device: Intermittent pneumatic compression device Consult Discharge Plan - Plan Referrals: Miky Garcia DO [Primary Care Provider] -
[2017-03-16] MEDS: *HR* OxyCODONE/APAP 7.5/325 TABLET PO PRN (20:42)
[2017-03-17] MEDS: MetroNIDAZOLE 500 MG/100 ML 500 MG/100 ML BAG IVPB SCH ×2 (00:32→07:29)
[2017-03-17] MEDS: Ondansetron 4 MG/2 ML VIAL IVP SCH ×4 (00:41→11:49)
[2017-03-17] MEDS: *HR* OxyCODONE/APAP 7.5/325 TABLET PO PRN (03:57)
[2017-03-17 05:06] LABS: Basophils % 0.4 %; Eosinophils # 0.3 K/mcL (0.0-0.6); Eosinophils % 3.1 %; Hematocrit 30.4 % (35.3-44.9); Hemoglobin 9.6 g/dL (11.5-15.4); Immature Granulocytes % 0.7 % (0-4); Lymphocytes # 1.5 K/mcL (0.6-4.6); Lymphocytes % 14.1 %; Mean Corpuscular HGB Conc 31.6 g/dL (31.6-35.5); Mean Corpuscular Hemoglobin 28.5 pg (28.0-33.3); Mean Corpuscular Volume 90.2 fL (83.0-100.0); Mean Platelet Volume 10.5 fL (9.4-12.4); Monocytes # 1.1 K/mcL (0.0-1.3); Monocytes % 10.6 %; Neutrophils # 7.6 K/mcL (1.6-8.9); Platelet Count 254 K/mcL (140-400); Red Blood Count 3.37 M/mcL (3.82-4.97); Red Cell Distribution Width 14.4 % (11.5-14.5); Segmented Neutrophils % 71.1 %
[2017-03-17 05:21] LABS: BUN/Creatinine Ratio 13 (6-26); Blood Urea Nitrogen 8 mg/dL (8-23); Calcium 8.8 mg/dL (8.6-10.3); Carbon Dioxide 28 mEq/L (23-29); Chloride 105 mEq/L (98-107); Glucose 91 mg/dL (70-105); Magnesium 1.5 mg/dL (1.6-2.6); Osmolality,Calculated 282 (280-300); Potassium 3.6 mEq/L (3.5-5.1); Sodium 137 mEq/L (136-145); eGFR For African Americans > 60 (> 60); eGFR For Non-African Americans > 60 (> 60)
[2017-03-17] MEDS: *HR* Enoxaparin 40 MG/0.4 ML SYRINGE SQ SCH (06:20)
[2017-03-17] MEDS: hydroCHLOROthiazide 25 MG TABLET PO SCH (07:27)
--- NOTE | 2017-03-17 08:33 | Discharge Summary ---
Date of Encounter: 03/17/17 Time of Encounter: 08:31 - Discharge Diagnosis (1) Rectovaginal fistula Priority: Primary Status: Acute (2) Cardiomyopathy Priority: Secondary Status: Chronic Qualifiers: Cardiomyopathy type: unspecified Qualified Code(s): I42.9 - Cardiomyopathy , unspecified - Discharge Medications Prescriptions: Ondansetron ODT [Zofran ODT] 4 mg SL Q4HR #15 tab.rapdis OxyCODONE/APAP 5/325 [Percocet 5/325 MG] 1 each PO Q6HR PRN #28 tablet PRN Reason: Pain Ciprofloxacin [Cipro] 500 mg PO BID #14 tablet Furosemide [Lasix] 20 mg PO DAILY #2 tablet Ibuprofen 800 mg PO Q8H #42 tablet Magnesium Oxide [Mag-Ox] 400 mg PO DAILY #4 tablet metroNIDAZOLE [Flagyl] 250 mg PO TID #21 tablet Phos-NaK [Neutra-Phos] 1 each PO DAILY #3 powd.pack Polyethylene Glycol 3350 [MiraLAX] 17 gm PO DAILY #30 powd.pack Home Medications: hydroCHLOROthiazide [Hydrochlorothiazide] 12.5 mg PO DAILY 03/08/17 [History] Ciprofloxacin [Cipro] 500 mg PO BID #14 tablet 03/17/17 [Rx] Furosemide [Lasix] 20 mg PO DAILY #2 tablet 03/17/17 [Rx] Ibuprofen 800 mg PO Q8H #42 tablet 03/17/17 [Rx] Magnesium Oxide [Mag-Ox] 400 mg PO DAILY #4 tablet 03/17/17 [Rx] Ondansetron ODT [Zofran ODT] 4 mg SL Q4HR #15 tab.rapdis 03/17/17 [Rx] OxyCODONE/APAP 5/325 [Percocet 5/325 MG] 1 each PO Q6HR PRN #28 tablet 03/17/17 [Rx] Phos-NaK [Neutra-Phos] 1 each PO DAILY #3 powd.pack 03/17/17 [Rx] Polyethylene Glycol 3350 [MiraLAX] 17 gm PO DAILY #30 powd.pack 03/17/17 [Rx] metroNIDAZOLE [Flagyl] 250 mg PO TID #21 tablet 03/17/17 [Rx] Allergies/Adverse Reactions: 3 Allergy/AdvReac Type Severity Reaction Status Date / Time Sulfa (Sulfonamide Allergy Unknown Unknown Verified 03/08/17 07:02 Antibiotics) General Surgery Exam Initial Vital Signs Temp Pulse Resp BP Pulse Ox 98.0 F 75 16 145/56 99 03/08/17 03:25 03/08/17 03:25 03/08/17 03:25 03/08/17 03:25 03/08/17 03:25 - General physical appearance well developed, well nourished, no distress - Eyes normal ocular movement - Neck no masses, no bruits, trachea midline, no lymphadectomy, no venous distension - Respiratory normal expansion, normal respiratory effort, clear to percussion, clear to auscultation - Cardiovascular Cardiovascular exam: Present: RRR, murmurs - Abdomen Abdomen general surgery: Present: bowel sounds present, soft, tender (Expected postoperative tenderness), wound (FLIP drain with 60 ML's of SS drainage in the bolt.) Hernia: Present: none - Incision Incision: Present: intact (Overall her midline incision is intact. There are 3 small areas of waking noted left during surgical procedure. Draining a small amount of serous training chip.) - Integumentary Integumentary general surgery: Present: warm and dry, no abnormal pigmentation - Neurologic Present: CN 2-12 grossly intact, normal coordination, normal sensation - Musculoskeletal Present: normal gait, normal posture - Psychiatric Psychiatric general surgery: Present: A&Ox3, appropriate, oriented to person, oriented to place, oriented to time, speech is normal, memory intact Date of admission: 03/08/17 03:06 Primary care physician: Miky Garcia Consults: 03/08/17 03:13 Consult to Surgery [CONS] Routine Consulting Provider: [facility] Reason for Consult: Recto vaginal fistula Call Completed: Yes 03/11/17 11:13 Consult to Cardiology [CONS] Routine Comment: Consulting Provider: Cardiology Roberta Reason for Consult: Preoperative risk stratification for urgent sigmoid resection 03/12/2017; Spoke with Dr. Stiles (records have been requested from [facility]) Time Notified: 11:14 Call Completed: Yes 03/12/17 19:13 Consult to Occupational Therapy [CONS] Routine Comment: Evaluate, develop and implement POC Reason for Consult: Weakness with sx Consult to Physical Therapy [CONS] Routine Comment: Evaluate, develop and implement POC Reason for Consult: Possible needs at d/c Consult to Information Technology Program Manager [CONS] Routine Reason for SW Consult: weakness with sx Discharging clinician: Wagner Mckeon (Luca Renteria) Anticipated date of discharge: 03/17/17 - Patient Status Disposition: Transfer Inpatient Rehab Fac Condition: Good Functional capacity at discharge: uses cane/walker Overall status at discharge: patient is progressing back to baseline - Discharge Instructions Instructions: Soft Diet (DC), Huey-Cole Drain Care (DC), Huey-Cole Drain Care (GEN), Colectomy (DC) Follow Up With: Miky Garcia DO [Primary Care Provider] - Chelo Renteria CNP [Advanced Practice Nurse] - 03/24/17 12:45 pm (Bring your FLIP record to this appointment) Additional Instructions: General Surgical Discharge Instructions 1. No pushing, pulling, or lifting greater than 15 lbs for 4 weeks (depending upon procedure). 2. You may shower beginning today, but no tub baths, soaking, or swimming for 2 weeks. 3. You may resume driving when you are off narcotics and are safe to react in a car. 4. Take ibuprofen every 8 hours for discomfort. If this does not relieve discomfort, you may take the as needed Percocet. Take narcotics as directed. Do not take more narcotics then directed and do not share your narcotics with any other person. Do not drink alcohol while on narcotics. 5. Take stool softeners (Colace) or a water based laxative (Miralax) while taking narcotics. You may hold for loose stools. 6. Report any fevers greater than 100.5F, increase abdominal discomfort, drainage that looks like pus, increased redness or pain at the surgical site, or any vomiting. a) small chandrakant where intentionally left in the abdomen and you are to continue changing backpacking daily until seen in follow-up. 7. Report any pain in the calves, shortness of breath, or rapid heartbeat. 8. Follow-up in the office as directed. 9. Continue Cipro and Flagyl for 7 more days. Do not drink alcohol while taking metronidazole. And refrain from drinking alcohol for 48 hours after completing metronidazole. 10. Daily wound care: a) remove dressings and packing. Shower/wash abdomen with antibacterial soap. Pat dry. Repack with 1/4 inch plain gauze. Cover with a dry dressing and tape to secure. b) do not let the FLIP drain dangle from the skin. When you shower suspend the FLIP around a lanyard or a necklace. Secure the FLIP drain to your clothing. c) emptied the FLIP drain at least daily. Record the drainage on the list provided. Bring that list with you cheer follow -up appointment. - Diet and Activity Activity: as per physical therapy, increase activity as tolerated Diet: other (soft diet) - Hospital Course Hospital course: Ms. Michele is a 86 year old female who presented on 03/09/2017 for complaints of fecal material per vagina. She was seen on an [facility] hospital for these complaints, and CT was obtained at the [facility] facility that showed concern for REV fistula and she was transferred to [facility] where She underwent a barium enema with Gastrografin which did not reveal a rectovaginal fistula and a MATERIAL YARD CLERK consult which revealed a hard mass in the vaginal cuff. A repeat CT was therefore obtained which did reveal 7 cm soft tissue tract communicating with the sigmoid colon inferior of the and communicating with the left adnexa in the left vaginal cuff highly suspicious for [place] vaginal fistula. She was taking to the operating room on 03/11/2017 where she underwent a robotic sigmoid colon resection with anastomosis. She is ambulating and voiding without difficulty. She is tolerating a full liquid diet without nausea or vomiting. She is having bowel movements and passing flatus. She is a febrile and her vital signs are stable. We will begin discharge planning to [facility] rehab with a follow-up in the office in one week. Pathology remains pending at time of d/c - Time Spent with Patient Total time spent providing and/or coordinating discharge services: Greater than 30 minutes (Rehab placement and d/c planning) Labs on day of discharge: Labs from last 24 hours 03/17/17 03/17/17 03/17/17 04:40 04:40 04:40 WBC 10.7 RBC 3.37 L Hgb 9.6 L Hct 30.4 L MCV 90.2 MCH 28.5 MCHC 31.6 RDW 14.4 Plt Count 254 MPV 10.5 Immature Gran % 0.7 Seg Neutrophils % 71.1 Lymphocytes % 14.1 Monocytes % 10.6 Eosinophils % 3.1 Basophils % 0.4 Neutrophils # 7.6 Lymphocytes # 1.5 Monocytes # 1.1 Eosinophils # 0.3 Basophils # 0.0 Sodium 137 Potassium 3.6 Chloride 105 Carbon Dioxide 28 BUN 8 Creatinine 0.61 Est GFR ( Amer) > 60 Est GFR (Non-Af Amer) > 60 BUN/Creatinine Ratio 13 Glucose 91 Calculated Osmolality 282 Calcium 8.8 Phosphorus 1.4 L Magnesium 1.5 L - Impressions ITS Impressions Barium Enema 03/09/17 08:00 IMPRESSION: No rectovaginal fistula identified while distending the patient's rectum with Gastrografin contrast. Diverticulosis was identified within the descending and sigmoid colon. D/ / Dannie Herrera MD / Dannie Herrera MD Interpreting Provider: Dannie Herrera MD Abdomen/Pelvis CT 03/10/17 10:30 IMPRESSION: 1. There is a 7 cm soft tissue tract extending from the proximal sigmoid colon inferiorly communicating with the left adnexa and the left vaginal cuff highly suspicious for a colovaginal fistula given clinical symptoms. There is an adjacent 1 cm pocket of gas which could represent a second sinus tract and/or abscess related to micro perforation. 2. Colonic diverticulosis predominately within the sigmoid colon with associated wall thickening. The inflammatory changes are more centered around the above sinus tract and less around colon. Underlying neoplasm cannot be excluded and consider further evaluation with colonoscopy. Differential also includes resolving or chronic diverticulitis. 3. Punctate nonobstructing left renal calculus. D/ / 03/10/2017 11:24:04 Genet Fernandez MD / ziggy Interpreting Provider: Genet Fernandez MD Echocardiogram 03/11/17 13:31 Impressions: LVEF 55-60%. Normal LV chamber size, wall thickness and function. Mild left ventricular diastolic dysfunction. Normal right ventricular structure and function. Mild aortic regurgitation. No evidence of pulmonary hypertension. Left Ventricular Wall Motion: Rest Echo Findings All wall segments showed normal motion. Findings: Study Quality * Technically adequate exam. ECG Findings * Normal sinus rhythm. Left Ventricle * LVEF 55-60%. * Normal LV chamber size, wall thickness and function. * Mild left ventricular diastolic dysfunction. Right Ventricle * Normal right ventricular structure and function. Left Atrium * Mildly dilated left atrium. Right Atrium * Mildly dilated right atrium. Aortic Valve * Trileaflet aortic valve. * Mildly sclerotic aortic valve leaflets. * Mild aortic regurgitation. * No aortic stenosis. Mitral Valve * Mild mitral annular calcification * Mildly thickened mitral valve leaflets. * Trace mitral regurgitation. * No mitral stenosis. Tricuspid Valve * Normal tricuspid valve structure and function. * Trace tricuspid regurgitation. * No evidence of pulmonary hypertension. Pulmonic Valve * Normal pulmonic valve structure and function. * No pulmonic regurgitation. Aorta * Normally sized aortic root. Pericardium * There is a trivial pericardial effusion present. IVC * Normal IVC dimensions and inspiratory collapse. Pulmonary Artery * Normal visualized portions of the main pulmonary artery.
--- NOTE | 2017-03-17 10:23 | Physician Discharge Referral ---
ExtendedCare Referral Info Transfer To: [facility] Provider in Charge: Dr. Wagner Mckeon Provider in Charge after Transfer: Other (Ribbon Hanking Machine Operator) Institutional Level of Care: Skilled - Diagnosis (1) Rectovaginal fistula Priority: Primary Status: Acute (2) Cardiomyopathy Priority: Secondary Status: Chronic Expected Duration of Placement: Less than 30 days Prognosis: Good Aware of Diagnosis: Patient Aware of Prognosis: Patient - Transfer Medications Prescriptions: Ondansetron ODT [Zofran ODT] 4 mg SL Q4HR #15 tab.rapdis OxyCODONE/APAP 5/325 [Percocet 5/325 MG] 1 each PO Q6HR PRN #28 tablet PRN Reason: Pain Ciprofloxacin [Cipro] 500 mg PO BID #14 tablet Ibuprofen 800 mg PO Q8H #42 tablet metroNIDAZOLE [Flagyl] 250 mg PO TID #21 tablet Polyethylene Glycol 3350 [MiraLAX] 17 gm PO DAILY #30 powd.pack Home Medications: hydroCHLOROthiazide [Hydrochlorothiazide] 12.5 mg PO DAILY 03/08/17 [History] Ciprofloxacin [Cipro] 500 mg PO BID #14 tablet 03/17/17 [Rx] Ibuprofen 800 mg PO Q8H #42 tablet 03/17/17 [Rx] Ondansetron ODT [Zofran ODT] 4 mg SL Q4HR #15 tab.rapdis 03/17/17 [Rx] OxyCODONE/APAP 5/325 [Percocet 5/325 MG] 1 each PO Q6HR PRN #28 tablet 03/17/17 [Rx] Polyethylene Glycol 3350 [MiraLAX] 17 gm PO DAILY #30 powd.pack 03/17/17 [Rx] metroNIDAZOLE [Flagyl] 250 mg PO TID #21 tablet 03/17/17 [Rx] Allergies/Adverse Reactions: 3 Allergy/AdvReac Type Severity Reaction Status Date / Time Sulfa (Sulfonamide Allergy Unknown Unknown Verified 03/08/17 07:02 Antibiotics) - Respiratory Orders Smoking Cessation: Smoking cessation has been advised. For more information, call the [place] Tobacco Quit Line at 4-061-WLDL-NOW. - Ancillary Orders May use pressure relief devices daily prn, May go on YINA w/family/respon republican w /meds at nurse discretion PRN - Advance Directives Living Will: Yes Power of Parts Designer: Yes Code Status: Full Code - Mobility Orders Ambulate - Rehabiliation Orders Rehab Potential: Good Rehab Orders: Evaluation for Physical Therapy, Evaluation for Occupational Therapy - Treatments Skin tear care topically daily PRN per policy List/Other: General Surgical Discharge Instructions 1. No pushing, pulling, or lifting greater than 15 lbs for 4 weeks (depending upon procedure). 2. You may shower beginning today, but no tub baths, soaking, or swimming for 2 weeks. 3. You may resume driving when you are off narcotics and are safe to react in a car. 4. Take ibuprofen every 8 hours for discomfort. If this does not relieve discomfort, you may take the as needed Percocet. Take narcotics as directed. Do not take more narcotics then directed and do not share your narcotics with any other person. Do not drink alcohol while on narcotics. 5. Take stool softeners (Colace) or a water based laxative (Miralax) while taking narcotics. You may hold for loose stools. 6. Report any fevers greater than 100.5F, increase abdominal discomfort, drainage that looks like pus, increased redness or pain at the surgical site, or any vomiting. a) small chandrakant where intentionally left in the abdomen and you are to continue changing backpacking daily until seen in follow-up. 7. Report any pain in the calves, shortness of breath, or rapid heartbeat. 8. Follow-up in the office as directed. 9. Continue Cipro and Flagyl for 7 more days. Do not drink alcohol while taking metronidazole. And refrain from drinking alcohol for 48 hours after completing metronidazole. 10. Daily wound care: a) remove dressings and packing. Shower/wash abdomen with antibacterial soap. Pat dry. Repack with 1/4 inch plain gauze. Cover with a dry dressing and tape to secure. b) do not let the FLIP drain dangle from the skin. When you shower suspend the FLIP around a lanyard or a necklace. Secure the FLIP drain to your clothing. c) emptied the FLIP drain at least daily. Record the drainage on the list provided. Bring that list with you cheer follow -up appointment. - Diet Orders Mechanical Soft House Supplement per Dietary: Boost or Ensure supplements TID with trays CERTIFICATION: I certify that the transfer of the above named patient to an Extended Care Facility is necessary for the continuing treatment of the diagnosis listed. The above information is true and accurate reflection of patient's current condition. Confidential - Redisclosure prohibited without a patient's written consent.
[2017-03-17] MEDS ORDERED: Furosemide 20 MG/2 ML VIAL IVP ONE (10:27)
[2017-03-17] MEDS ORDERED: Potassium Chloride Elixir 20 MEQ/15 ML UDC PO SCH (10:30)
[2017-03-17] MEDS ORDERED: Magnesium Oxide 400 MG TABLET PO SCH (10:30)
[2017-03-17 10:42] VITALS: BP 125/86
--- NOTE | 2017-03-17 15:18 | Operative Note ---
Date of procedure: 03/12/17 Pre-op diagnosis: colovaginal fistula Post-op diagnosis: same Procedure: Robotic sigmoid resection with primary stapled anastomosis Anesthesia: RASHMI Surgeon: Wagner Mckeon Estimated blood loss (cc): 25 Specimen: Sigmoid colon Condition: stable Disposition: floor Procedure in Detail: After informed consent, patient taken operating room placed supine position. After adequate sedation anesthesia patient was placed in a lithotomy position. After proper timeout a 12 mm cannula site was placed right superior to the umbilicus. Pneumoperitoneum was greater. A 13 mm cannula was placed in right lower quadrant. 5 mm camera was placed in the right upper quadrant. An 8 mm cannula was placed in subxiphoid region followed by another 8 mm in the left lower quadrant. Patient was placed in a headdown position. The robot was docked over the patient's left hip. Small bowel swept out of the pelvis. Rectosigmoid colon was then grasped and retracted cephalad. The peritoneum was then scored level of the sacral promontory. The left ureter was identified and kept on harm's way. The inferior mesenteric artery was then taken with a vessel sealer. The lateral rectosigmoid stalks were taken down the vessel sealer. The dissection was carried out down to approximate 4 cm above the pelvic floor. Rectosigmoid colon was dissected free from the retro-pubic tubercle region. Once it was freed a 45 mm robotic Endo staplers fired across the rectum. Once it was retracted and area was demarcated on the sigmoid colon for transection. Indocyanine green was infused and we had excellent perfusion. The splenic flexure was also taken down and mobilized. This mobilization allowed for less tension on the anastomosis. A counterincision was made in the suprapubic region. Dissection carried down the anterior rectus sheath. The rectus muscles were then divided in the midline with Inga clamp. Once they were split the rectosigmoid colon was delivered. Alberto bowel clamps are used to place across the colon proximal and distal and transected. Allis clamps are placed on the bowel and then a pursestring suture device placed on the colon. 3-0 Prolene suture was passed. A pursestring sutures and created and a 33 mm EEA anvil was placed. Suture was tied and secured. Colon was then placed back in the pelvis. The stapler was passed through the anal canal and to the rectal stump and then the spear was placed through the staple line. The anvil was then connected secured and fired. There were 2 excellent donuts. There were several 2-0 silk sutures used to buttress the staple line. A leak test revealed no leak. At that point the procedure was terminated. All incisions are closed with 0 Vicryl suture and 4-0 Vicryl suture. Marcaine was inserted in the Pfannenstiel incision. She tolerated the procedure well.
== END 2017-03-17 13:45 | DRG 330 ==
LOC: 3ANU → SUATTDRO 03-08 03:06
PROVIDERS: ADMIT Family Medicine; ATTEND Internal Medicine